=== PATIENT | female | born 1945 | race Caucasian/White ===

== ENCOUNTER 2017-12-18 02:56 | Inpatient (IN) | payer MEDICARE, OTHER ==
[~2017-12-18] VITALS: Ht 167.6 cm; Wt 68.7 kg
[2017-12-18] MEDS ORDERED: BENZ0.5T32 PO (03:26)
[2017-12-18] MEDS ORDERED: QUET50TA8 PO (03:26)
[2017-12-18] MEDS ORDERED: LACT1CAP21 PO (03:26)
[2017-12-18] MEDS ORDERED: LISI-334 PO (03:26)
[2017-12-18] MEDS ORDERED: CARB1TAB47 PO (03:26)
[2017-12-18] MEDS ORDERED: OLAN5TAB5 PO (03:26)
[2017-12-18 05:53] VITALS: BP 166/76
[2017-12-18] MEDS ORDERED: MAGNESIUM HYDROXIDE 2,400 MG/30 ML ORAL.SUSP. PO PRN (06:15)
[2017-12-18] MEDS ORDERED: METHYL SALICYLATE/MENTHOL TOPICAL OINTMENT 29GM TUBE. TP PRN (06:15)
[2017-12-18 07:43] LABS: BASO # 0.1 x10^3/uL (0.0-0.2); BASO % 1 % (0-3); EOS # 0.2 x10^3/uL (0.0-0.7); EOS % 3 % (0-3); HEMATOCRIT 40.1 % (36.0-47.0); HEMOGLOBIN 13.7 g/dL (12.0-15.5); LYMPH # 1.6 x10^3/uL (1.0-4.8); LYMPH % 28 % (24-48); MEAN CORPUSCULAR HEMOGLOBIN 31 pg (25-35); MEAN CORPUSCULAR HGB CONC 34 g/dL (31-37); MEAN CORPUSCULAR VOLUME 90 fL (79-100); MONO # 0.5 x10^3/uL (0.0-1.1); MONO % 10 % (0-9); NEUT # 3.3 x10^3uL (1.8-7.7); NEUT % 59 % (31-73); PLATELET COUNT 306 x10^3/uL (140-400); RED BLOOD COUNT 4.47 x10^6/uL (3.50-5.40); RED CELL DISTRIBUTION WIDTH 15.2 % (11.5-14.5); WHITE BLOOD COUNT 5.7 x10^3/uL (4.0-11.0)
[2017-12-18] MEDS: LACTOBACILLUS RHAMNOSUS GG 1 CAPSULE. PO SCH ×2 (08:19→20:16)
[2017-12-18] MEDS: BENZTROPINE MESYLATE 0.5 MG TABLET PO SCH ×2 (08:19→20:16)
[2017-12-18] MEDS: LISINOPRIL 20 MG TABLET PO SCH (08:20)
[2017-12-18 08:22] LABS: ALBUMIN/GLOBULIN RATIO 1.1 (1.0-1.7); CALCIUM 9.2 mg/dL (8.5-10.1); CREATININE 0.7 mg/dL (0.6-1.0); GFR 82.5; TOTAL BILIRUBIN 0.5 mg/dL (0.2-1.0); TOTAL PROTEIN 7.5 g/dL (6.4-8.2)
--- NOTE | 2017-12-18 09:42 | EKG ---
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
[2017-12-18 11:18] LABS: THYROID STIM HORMONE (TSH) 5.744 uIU/mL (0.358-3.740)
[2017-12-18] MEDS: CARBIDOPA/LEVODOPA 25/100MG TABLET PO SCH ×2 (12:00→17:35)
[2017-12-18 14:07] LABS: THYROXINE 6.3 ug/dL (4.5-12.0)
[2017-12-18 15:57] VITALS: BP 124/68
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
[2017-12-18] MEDS: QUEtiapine 25 MG TABLET. PO SCH (20:16)
--- NOTE | 2017-12-18 22:23 | PDOC ---
Exam Note: Tre Note: Please also refer to the separate dictated note~for this date of service dictated separately.~Patient seen individually. Discussed the patient with Nursing staff reviewed the chart.~Reviewed interim history and current functioning. Reviewed vital signs,~Labs/ Radiology~and current medications noted below. Continue current treatment with the changes noted in the dictated addendum note Assessment: Vital Signs: Vital Signs Date Time Temp Pulse Resp B/P (MAP) Pulse Ox O2 Delivery O2 Flow Rate FiO2 12/18/17 15:57 97.3 66 22 124/68 (86) 100 Labs: Laboratory Tests Test 12/18/17 07:08 White Blood Count 5.7 x10^3/uL (4.0-11.0) Red Blood Count 4.47 x10^6/uL (3.50-5.40) Hemoglobin 13.7 g/dL (12.0-15.5) Hematocrit 40.1 % (36.0-47.0) Mean Corpuscular Volume 90 fL (79-100) Mean Corpuscular Hemoglobin 31 pg (25-35) Mean Corpuscular Hemoglobin Concent 34 g/dL (31-37) Red Cell Distribution Width 15.2 % (11.5-14.5) H Platelet Count 306 x10^3/uL (140-400) Neutrophils (%) (Auto) 59 % (31-73) Lymphocytes (%) (Auto) 28 % (24-48) Monocytes (%) (Auto) 10 % (0-9) H Eosinophils (%) (Auto) 3 % (0-3) Basophils (%) (Auto) 1 % (0-3) Neutrophils # (Auto) 3.3 x10^3uL (1.8-7.7) Lymphocytes # (Auto) 1.6 x10^3/uL (1.0-4.8) Monocytes # (Auto) 0.5 x10^3/uL (0.0-1.1) Eosinophils # (Auto) 0.2 x10^3/uL (0.0-0.7) Basophils # (Auto) 0.1 x10^3/uL (0.0-0.2) Sodium Level 142 mmol/L (136-145) Potassium Level 4.0 mmol/L (3.5-5.1) Chloride Level 106 mmol/L (98-107) Carbon Dioxide Level 30 mmol/L (21-32) Anion Gap 6 (6-14) Blood Urea Nitrogen 11 mg/dL (7-20) Creatinine 0.7 mg/dL (0.6-1.0) Estimated GFR (Cockcroft-Gault) 82.5 BUN/Creatinine Ratio 16 (6-20) Glucose Level 86 mg/dL (70-99) Hemoglobin A1c 5.0 % (4.8-5.6) Calcium Level 9.2 mg/dL (8.5-10.1) Magnesium Level 2.0 mg/dL (1.8-2.4) Iron Level 82 ug/dL (50-170) Total Iron Binding Capacity 329 ug/dL (250-450) Iron Saturation 25 % (15-34) Total Bilirubin 0.5 mg/dL (0.2-1.0) Aspartate Amino Transferase (AST) 18 U/L (15-37) Alanine Aminotransferase (ALT) 18 U/L (14-59) Alkaline Phosphatase 100 U/L (46-116) Total Protein 7.5 g/dL (6.4-8.2) Albumin 4.0 g/dL (3.4-5.0) Albumin/Globulin Ratio 1.1 (1.0-1.7) Triglycerides Level 66 mg/dL (0-150) Cholesterol Level 173 mg/dL (0-200) LDL Cholesterol, Calculated 93 mg/dL (0-100) VLDL Cholesterol, Calculated 13 mg/dL (0-40) Non-HDL Cholesterol Calculated 106 mg/dL (0-129) HDL Cholesterol 67 mg/dL (40-60) H Cholesterol/HDL Ratio 2.0 Thyroid Stimulating Hormone (TSH) 5.744 uIU/mL (0.358-3.740) Thyroxine (T4) 6.3 ug/dL (4.5-12.0) Total Triiodothyronine (TT3) 108 ng/dL (71-180) Current Medications: Meds: Current Medications Lisinopril (Prinivil) 20 mg DAILY PO Last administered on 12/18/17at 08:20; Start 12/18/17 at 09:00 Olanzapine (ZyPREXA ZYDIS) 2.5 mg PRN Q2HR PRN PO ANXIETY / AGITATION Last administered on 12/18/17at 12:15; Start 12/18/17 at 06:00 Benztropine Mesylate (Cogentin) 0.5 mg BID PO Last administered on 12/18/17at 20 :16; Start 12/18/17 at 09:00 Carbidopa/Levodopa (Sinemet 25/100) 2 tab [id number] PO Last administered on at 17:35; Start 12/18/17 at 12:00 Lactobacillus Rhamnosus (Culturelle) 1 cap BID PO Last administered on at 20:16; Start 12/18/17 at 09:00 Quetiapine Fumarate (SEROquel) 25 mg BID PO Last administered on 12/18/17at 20: 16; Start 12/18/17 at 21:00 Acetaminophen (Tylenol) 650 mg PRN Q6HRS PRN PO PAIN / TEMP; Start 12/18/17 at 06:15 Multi-Ingredient Ointment (Analgesic [place]) 1 constantine PRN QID PRN TP MUSCLE PAIN; Start 12/18/17 at 06:15 Al Hydroxide/Mg Hydroxide (Mylanta Plus Xs) 15 ml PRN AFTMEALHC PRN PO DYSPEPSIA; Start 12/18/17 at 06:15 Magnesium Hydroxide (Milk Of Magnesia) 2,400 mg PRN QHS PRN PO CONSTIPATION; Start 12/18/17 at 06:15 Sertraline HCl (Zoloft) 25 mg DAILY PO ; Start 12/19/17 at 09:00 Trazodone HCl (Desyrel) 50 mg PRN QHS PRN PO insomnia; Start 12/18/17 at 18:30 Active Scripts Active Reported Benztropine Mesylate 0.5 Mg Tablet 0.5 Mg PO BID Zyprexa Zydis (Olanzapine) 5 Mg Tab.rapdis 2.5 Mg PO PRN Q2HR PRN Seroquel Xr (Quetiapine Fumarate) 50 Mg Tab.er.24h 50 Mg PO HS Lisinopril 20 Mg Tablet 20 Mg PO DAILY Culturelle (Lactobacillus Rhamnosus Gg) 1 Each Capsule 1 Each PO BID Carbidopa-Levo 25-100 Mg Odt (Carbidopa/Levodopa) 1 Each Tab.rapdis 2 Each PO QID I have reviewed the current psychotropics carefully including drug interactions. Risk benefit ratio favors no change other than as noted in my dictated progress note. Diagnosis: Problems: (1) Anxiety disorder (2) Impulse control disorder (3) Major depressive disorder, recurrent episode (4) Psychosis, atypical (5) Mild cognitive impairment SUDHEER SAPP MD Dec 18, 2017 22:23
[2017-12-19] MEDS: CARBIDOPA/LEVODOPA 25/100MG TABLET PO SCH ×4 (00:05→17:42)
[2017-12-19 06:00] VITALS: BP 138/69
[2017-12-19 08:02] LABS: BILIRUBIN,URINE NEG (NEG); CLARITY,URINE CLEAR; COLOR,URINE YELLOW; GLUCOSE,URINE NEG (NEG)
[2017-12-19 08:03] LABS: BACTERIA,URINE 0 /HPF (0-FEW); NITRITE,URINE NEG (NEG); SQUAMOUS EPITHELIAL CELL,UR FEW /LPF; UROBILINOGEN,URINE 0.2 mg/dL (0.2 mg/dL)
[2017-12-19] MEDS: BENZTROPINE MESYLATE 0.5 MG TABLET PO SCH ×2 (08:29→20:02)
[2017-12-19] MEDS: LISINOPRIL 20 MG TABLET PO SCH (08:30)
[2017-12-19] MEDS: LACTOBACILLUS RHAMNOSUS GG 1 CAPSULE. PO SCH ×2 (08:30→20:02)
[2017-12-19] MEDS: QUEtiapine 25 MG TABLET. PO SCH ×2 (08:30→20:02)
[2017-12-19] MEDS: SERTRALINE 25 MG TABLET. PO SCH (09:32)
[2017-12-19] MEDS: MAG HYDROX/AL HYDROX/SIMETH 30 ML ORAL.SUSP PO PRN ×2 (11:34→20:06)
--- NOTE | 2017-12-19 15:26 | CONS ---
DATE OF CONSULTATION: 12/19/2017 NEUROLOGY CONSULTATION REFERRING PHYSICIAN: Dr. Gutierrez. REASON FOR CONSULTATION: Parkinson disease. HISTORY OF PRESENT ILLNESS: This is a 72-year-old female, right-handed, who was transferred from assisted living facility in [place] to the Senior [facility] Unit with diagnoses of severe depression and suicidal ideation with a plan of overdosing her medications. It was reported that the patient had some behavior disturbances including agitation and angry and asking another resident for a kiss. Neuro consult was requested because the patient has had a longstanding history of Parkinson disease. According to the patient, she was diagnosed with Parkinson disease in 1998. Currently, she complains of intermittent tremor and stiffness. She denies any falls or injuries. She also complains of epigastric discomfort described as heartburn. On occasion, she complains of hallucinations. She denies chest pain, shortness of breath, palpitation, dysarthria, dysphagia, or paresthesia. PAST MEDICAL HISTORY: Significant for hypertension, Parkinson disease, hypothyroidism, generalized weakness, depression, and suicidal ideations. SOCIAL HISTORY: The patient is an assisted living facility resident. She denies smoking, alcohol drinking, or illicit drug use. FAMILY HISTORY: Noncontributory. CURRENT HOME MEDICATIONS: Zoloft 25 mg daily, Seroquel 25 mg twice daily, trazodone 50 mg at bedtime p.r.n. for insomnia, carbidopa/levodopa 25/100 two tablets q.i.d., benztropine 0.5 mg twice daily, lisinopril 20 mg daily, olanzapine 2.5 mg q.2 hours p.r.n. for agitation, Tylenol p.r.n. for pain. ALLERGIES: No known drug allergies. REVIEW OF SYSTEMS: A 10-point review of system was performed and as mentioned above in the history of present illness, otherwise unremarkable. PHYSICAL EXAMINATION: GENERAL: Well-developed, well-nourished white female not in acute distress. VITAL SIGNS: Blood pressure 138/69, respiratory rate 20, pulse is 66, temperature 97.5, oxygen saturation is 97% on room air. HEENT: Normocephalic, atraumatic, otherwise unremarkable. NECK: Supple. Negative for carotid bruit, lymphadenopathy, or thyromegaly. LUNGS: Clear to A and P. CARDIOVASCULAR: Regular rhythm, normal S1-S2. There is no S3, S4 or murmur. ABDOMEN: Soft, bowel sounds positive. EXTREMITIES: Negative for cyanosis, clubbing, or pedal edema. NEUROLOGIC: 1. Mental Status: The patient is alert and oriented x 3. Speech is fluent. There is no language dysfunction. The patient recalls 2/3 immediately and after 1 and 3 minutes. Judgment and abstract thinking are fair. The patient denies hallucination or delusion at this time. 2. Cranial Nerves: Visual flores are full. The pupils are reactive to light and accommodation. The extraocular movements are intact. There is no nystagmus. There is no facial motor or sensory deficit. Hearing is intact bilaterally. The palate is elevated symmetrically. Sternocleidomastoid muscles are powerful bilaterally. The patient shrugs her shoulder symmetrically and protrudes her tongue in the midline without fasciculation or atrophy. 3. Motor Examination: No focal muscle bulk was seen. The tone is normal. The strength is 5/5 throughout. 4. Sensory Examination: Reveals normal pinprick, light touch, vibratory and position senses. 5. Deep tendon reflexes are symmetric and active without pathologic responses. 6. Gait and coordination are normal. However, the patient uses a walker for amputation as well. LABORATORY DATA: CBC revealed white blood cells of 5.7000, hemoglobin 13.7, hematocrit 40.1, platelet count 306,000. Chemistry revealed sodium of 142, potassium 4, chloride 106, CO2 30, BUN 11, creatinine 0.7, glucose 86, A1c is 5, calcium 9.2. Iron is normal at 82. Liver enzymes are normal. Lipid profile is normal. TSH is high at 5.7 with normal free T4 and T3. Urinalysis, negative for urinary tract infection with a trace urinary leukocyte esterase. IMPRESSION: 1. Parkinson disease. 2. Major depression with psychotic feature and suicidal ideation. 3. Anxiety. RECOMMENDATIONS: 1. Continue with current home medications for Parkinson disease including carbidopa/levodopa and benztropine. 2. Continue with current medical and psychiatric care initiated by Dr. Hughes and Dr. Gutierrez. M Clarence HINOJOSA MD DR: JOSHUA/robby JOB#: [id number] / [id number]
[2017-12-19 16:16] VITALS: BP 129/62
[2017-12-19] MEDS: traZODone 50 MG TABLET. PO PRN (20:24)
--- NOTE | 2017-12-19 20:55 | PDOC ---
Exam Note: Tre Note: Please also refer to the separate dictated note~for this date of service dictated separately.~Patient seen individually. Discussed the patient with Nursing staff reviewed the chart.~Reviewed interim history and current functioning. Reviewed vital signs,~Labs/ Radiology~and current medications noted below. Continue current treatment with the changes noted in the dictated addendum note Assessment: Vital Signs: Vital Signs Date Time Temp Pulse Resp B/P (MAP) Pulse Ox O2 Delivery O2 Flow Rate FiO2 12/19/17 16:16 97.6 67 18 129/62 (84) 100 12/19/17 06:00 Room Air I&O Intake and Output 12/19/17 07:00 Intake Total 720 ml Balance 720 ml Intake Oral 720 ml Labs: Laboratory Tests Test 12/19/17 07:40 Urine Collection Type Unknown Urine Color Yellow Urine Clarity Clear Urine pH 7.0 Urine Specific [place] 1.015 Urine Protein Neg (NEG-TRACE) Urine Glucose (UA) Neg mg/dL (NEG) Urine Ketones (Stick) Neg mg/dL (NEG) Urine Blood Neg (NEG) Urine Nitrite Neg (NEG) Urine Bilirubin Neg (NEG) Urine Urobilinogen Dipstick 0.2 mg/dL (0.2 mg/dL) Urine Leukocyte Esterase Trace (NEG) Urine RBC 1-2 /HPF (0-2) Urine WBC 1-4 /HPF (0-4) Urine Squamous Epithelial Cells Few /LPF Urine Bacteria 0 /HPF (0-FEW) Current Medications: Meds: Current Medications Lisinopril (Prinivil) 20 mg DAILY PO Last administered on 12/19/17at 08:30; Start 12/18/17 at 09:00 Olanzapine (ZyPREXA ZYDIS) 2.5 mg PRN Q2HR PRN PO ANXIETY / AGITATION Last administered on 12/18/17at 12:15; Start 12/18/17 at 06:00 Benztropine Mesylate (Cogentin) 0.5 mg BID PO Last administered on 12/19/17at 20: 02; Start 12/18/17 at 09:00 Carbidopa/Levodopa (Sinemet 25/100) 2 tab [id number] PO Last administered on 12/19at 17:42; Start 12/18/17 at 12:00 Lactobacillus Rhamnosus (Culturelle) 1 cap BID PO Last administered on at 20:02; Start 12/18/17 at 09:00 Quetiapine Fumarate (SEROquel) 25 mg BID PO Last administered on 12/19/17at 20:02 ; Start 12/18/17 at 21:00 Acetaminophen (Tylenol) 650 mg PRN Q6HRS PRN PO PAIN / TEMP; Start 12/18/17 at 06:15 Multi-Ingredient Ointment (Analgesic [place]) 1 constantine PRN QID PRN TP MUSCLE PAIN; Start 12/18/17 at 06:15 Al Hydroxide/Mg Hydroxide (Mylanta Plus Xs) 15 ml PRN AFTMEALHC PRN PO DYSPEPSIA Last administered on 12/19/17 20:06; Start 12/18/17 at 06:15 Magnesium Hydroxide (Milk Of Magnesia) 2,400 mg PRN QHS PRN PO CONSTIPATION; Start 12/18/17 at 06:15 Sertraline HCl (Zoloft) 25 mg DAILY PO Last administered on 12/19/17at 09:32; Start 12/19/17 at 09:00 Trazodone HCl (Desyrel) 50 mg PRN QHS PRN PO insomnia Last administered on at 20:24; Start 12/18/17 at 18:30 Active Scripts Active Reported Benztropine Mesylate 0.5 Mg Tablet 0.5 Mg PO BID Zyprexa Zydis (Olanzapine) 5 Mg Tab.rapdis 2.5 Mg PO PRN Q2HR PRN Seroquel Xr (Quetiapine Fumarate) 50 Mg Tab.er.24h 50 Mg PO HS Lisinopril 20 Mg Tablet 20 Mg PO DAILY Culturelle (Lactobacillus Rhamnosus Gg) 1 Each Capsule 1 Each PO BID Carbidopa-Levo 25-100 Mg Odt (Carbidopa/Levodopa) 1 Each Tab.rapdis 2 Each PO QID I have reviewed the current psychotropics carefully including drug interactions. Risk benefit ratio favors no change other than as noted in my dictated progress note. Diagnosis: Problems: (1) Anxiety disorder (2) Impulse control disorder (3) Major depressive disorder, recurrent episode (4) Psychosis, atypical (5) Mild cognitive impairment SUDHEER SAPP MD Dec 19, 2017 20:55
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
[2017-12-20] MEDS: CARBIDOPA/LEVODOPA 25/100MG TABLET PO SCH ×4 (05:23→17:10)
[2017-12-20 06:16] VITALS: BP 143/56
[2017-12-20] MEDS: BENZTROPINE MESYLATE 0.5 MG TABLET PO SCH ×2 (08:05→19:35)
[2017-12-20] MEDS: LISINOPRIL 20 MG TABLET PO SCH (08:05)
[2017-12-20] MEDS: SERTRALINE 25 MG TABLET. PO SCH (08:05)
[2017-12-20] MEDS: QUEtiapine 25 MG TABLET. PO SCH ×2 (08:05→19:35)
[2017-12-20] MEDS: LACTOBACILLUS RHAMNOSUS GG 1 CAPSULE. PO SCH ×2 (08:05→19:35)
[2017-12-20] MEDS: ACETAMINOPHEN 325 MG TABLET PO PRN ×2 (12:02→17:27)
[2017-12-20 15:58] VITALS: BP 123/52
[2017-12-20] MEDS: MAG HYDROX/AL HYDROX/SIMETH 30 ML ORAL.SUSP PO PRN (17:58)
[2017-12-20] MEDS: traZODone 50 MG TABLET. PO PRN (19:36)
--- NOTE | 2017-12-20 20:57 | PDOC ---
Exam Note: Tre Note: Please also refer to the separate dictated note~for this date of service dictated separately.~Patient seen individually. Discussed the patient with Nursing staff reviewed the chart.~Reviewed interim history and current functioning. Reviewed vital signs,~Labs/ Radiology~and current medications noted below. Continue current treatment with the changes noted in the dictated addendum note Assessment: Vital Signs: Vital Signs Date Time Temp Pulse Resp B/P (MAP) Pulse Ox O2 Delivery O2 Flow Rate FiO2 12/20/17 15:58 98.4 75 16 123/52 (75) 96 12/19/17 06:00 Room Air I&O Intake and Output 12/20/17 06:59 Intake Total 1680 ml Balance 1680 ml Intake Oral 1680 ml # Voids 2 Current Medications: Meds: Current Medications Lisinopril (Prinivil) 20 mg DAILY PO Last administered on 12/20/17at 08:05; Start 12/18/17 at 09:00 Olanzapine (ZyPREXA ZYDIS) 2.5 mg PRN Q2HR PRN PO ANXIETY / AGITATION Last administered on 12/18/17at 12:15; Start 12/18/17 at 06:00 Benztropine Mesylate (Cogentin) 0.5 mg BID PO Last administered on 12/20/17 19: 35; Start 12/18/17 at 09:00 Carbidopa/Levodopa (Sinemet 25/100) 2 tab [id number] PO Last administered on 12/20at 17:10; Start 12/18/17 at 12:00 Lactobacillus Rhamnosus (Culturelle) 1 cap BID PO Last administered on at 19:35; Start 12/18/17 at 09:00 Quetiapine Fumarate (SEROquel) 25 mg BID PO Last administered on 12/20/17at 08:05 ; Start 12/18/17 at 21:00; Stop 12/20/17 at 18:27; Status DC Acetaminophen (Tylenol) 650 mg PRN Q6HRS PRN PO PAIN / TEMP Last administered on 12/20/17at 17:27; Start 12/18/17 at 06:15 Multi-Ingredient Ointment (Analgesic [place]) 1 constantine PRN QID PRN TP MUSCLE PAIN; Start 12/18/17 at 06:15 Al Hydroxide/Mg Hydroxide (Mylanta Plus Xs) 15 ml PRN AFTMEALHC PRN PO DYSPEPSIA Last administered on 12/20/17at 17:58; Start 12/18/17 at 06:15 Magnesium Hydroxide (Milk Of Magnesia) 2,400 mg PRN QHS PRN PO CONSTIPATION; Start 12/18/17 at 06:15 Sertraline HCl (Zoloft) 25 mg DAILY PO Last administered on 12/20/17at 08:05; Start 12/19/17 at 09:00; Stop 12/20/17 at 17:02; Status DC Trazodone HCl (Desyrel) 50 mg PRN QHS PRN PO insomnia Last administered on at 19:36; Start 12/18/17 at 18:30 Duloxetine HCl (Cymbalta) 30 mg DAILY PO ; Start 12/21/17 at 09:00 Quetiapine Fumarate (SEROquel) 25 mg TID PO Last administered on 12/20/17at 19:35 ; Start 12/20/17 at 21:00 Active Scripts Active Reported Benztropine Mesylate 0.5 Mg Tablet 0.5 Mg PO BID Zyprexa Zydis (Olanzapine) 5 Mg Tab.rapdis 2.5 Mg PO PRN Q2HR PRN Seroquel Xr (Quetiapine Fumarate) 50 Mg Tab.er.24h 50 Mg PO HS Lisinopril 20 Mg Tablet 20 Mg PO DAILY Culturelle (Lactobacillus Rhamnosus Gg) 1 Each Capsule 1 Each PO BID Carbidopa-Levo 25-100 Mg Odt (Carbidopa/Levodopa) 1 Each Tab.rapdis 2 Each PO QID I have reviewed the current psychotropics carefully including drug interactions. Risk benefit ratio favors no change other than as noted in my dictated progress note. Diagnosis: Problems: (1) Anxiety disorder (2) Impulse control disorder (3) Major depressive disorder, recurrent episode (4) Psychosis, atypical (5) Mild cognitive impairment SUDHEER SAPP MD Dec 20, 2017 20:57
[2017-12-21] MEDS: CARBIDOPA/LEVODOPA 25/100MG TABLET PO SCH ×5 (06:20→23:56)
[2017-12-21 06:32] VITALS: BP 167/79
[2017-12-21] MEDS: LACTOBACILLUS RHAMNOSUS GG 1 CAPSULE. PO SCH ×2 (08:32→20:02)
[2017-12-21] MEDS: BENZTROPINE MESYLATE 0.5 MG TABLET PO SCH ×2 (08:33→20:02)
[2017-12-21] MEDS: LISINOPRIL 20 MG TABLET PO SCH (08:33)
[2017-12-21] MEDS: QUEtiapine 25 MG TABLET. PO SCH ×3 (08:33→20:03)
[2017-12-21] MEDS: DULoxetine HCL 30 MG CAPSULE.DR PO SCH (08:36)
[2017-12-21] MEDS: MAG HYDROX/AL HYDROX/SIMETH 30 ML ORAL.SUSP PO PRN ×2 (08:59→15:27)
[2017-12-21 16:22] VITALS: BP 124/67
--- NOTE | 2017-12-21 20:38 | PDOC ---
Exam Note: Tre Note: Please also refer to the separate dictated note~for this date of service dictated separately.~Patient seen individually. Discussed the patient with Nursing staff reviewed the chart.~Reviewed interim history and current functioning. Reviewed vital signs,~Labs/ Radiology~and current medications noted below. Continue current treatment with the changes noted in the dictated addendum note Assessment: Vital Signs: Vital Signs Date Time Temp Pulse Resp B/P (MAP) Pulse Ox O2 Delivery O2 Flow Rate FiO2 12/21/17 16:22 97.8 70 18 124/67 (86) 98 12/19/17 06:00 Room Air I&O Intake and Output 12/21/17 06:59 Intake Total 1260 ml Balance 1260 ml Intake Oral 1260 ml # Voids 2 Current Medications: Meds: Current Medications Lisinopril (Prinivil) 20 mg DAILY PO Last administered on 12/21/17at 08:33; Start 12/18/17 at 09:00 Olanzapine (ZyPREXA ZYDIS) 2.5 mg PRN Q2HR PRN PO ANXIETY / AGITATION Last administered on 12/18/17at 12:15; Start 12/18/17 at 06:00 Benztropine Mesylate (Cogentin) 0.5 mg BID PO Last administered on 12/21/17 20: 02; Start 12/18/17 at 09:00 Carbidopa/Levodopa (Sinemet 25/100) 2 tab [id number] PO Last administered on 12/21at 17:54; Start 12/18/17 at 12:00 Lactobacillus Rhamnosus (Culturelle) 1 cap BID PO Last administered on at 20:02; Start 12/18/17 at 09:00 Quetiapine Fumarate (SEROquel) 25 mg BID PO Last administered on 12/20/17at 08:05 ; Start 12/18/17 at 21:00; Stop 12/20/17 at 18:27; Status DC Acetaminophen (Tylenol) 650 mg PRN Q6HRS PRN PO PAIN / TEMP Last administered on 12/20/17at 17:27; Start 12/18/17 at 06:15 Multi-Ingredient Ointment (Analgesic [place]) 1 constantine PRN QID PRN TP MUSCLE PAIN; Start 12/18/17 at 06:15 Al Hydroxide/Mg Hydroxide (Mylanta Plus Xs) 15 ml PRN AFTMEALHC PRN PO DYSPEPSIA Last administered on 12/21/17at 15:27; Start 12/18/17 at 06:15 Magnesium Hydroxide (Milk Of Magnesia) 2,400 mg PRN QHS PRN PO CONSTIPATION; Start 12/18/17 at 06:15 Sertraline HCl (Zoloft) 25 mg DAILY PO Last administered on 12/20/17at 08:05; Start 12/19/17 at 09:00; Stop 12/20/17 at 17:02; Status DC Trazodone HCl (Desyrel) 50 mg PRN QHS PRN PO insomnia Last administered on at 19:36; Start 12/18/17 at 18:30 Duloxetine HCl (Cymbalta) 30 mg DAILY PO Last administered on 12/21/17at 08:36; Start 12/21/17 at 09:00 Quetiapine Fumarate (SEROquel) 25 mg TID PO Last administered on 12/21/17at 20:03 ; Start 12/20/17 at 21:00 Loperamide HCl (Imodium) 4 mg PRN DAILY PRN PO diarrhea; Start 12/21/17 at 15:45 Loperamide HCl (Imodium) 2 mg PRN Q15MIN PRN PO DIARRHEA; Start 12/21/17 at 15: 45 Active Scripts Active Reported Benztropine Mesylate 0.5 Mg Tablet 0.5 Mg PO BID Zyprexa Zydis (Olanzapine) 5 Mg Tab.rapdis 2.5 Mg PO PRN Q2HR PRN Seroquel Xr (Quetiapine Fumarate) 50 Mg Tab.er.24h 50 Mg PO HS Lisinopril 20 Mg Tablet 20 Mg PO DAILY Culturelle (Lactobacillus Rhamnosus Gg) 1 Each Capsule 1 Each PO BID Carbidopa-Levo 25-100 Mg Odt (Carbidopa/Levodopa) 1 Each Tab.rapdis 2 Each PO QID I have reviewed the current psychotropics carefully including drug interactions. Risk benefit ratio favors no change other than as noted in my dictated progress note. Diagnosis: Problems: (1) Anxiety disorder (2) Impulse control disorder (3) Major depressive disorder, recurrent episode (4) Psychosis, atypical (5) Mild cognitive impairment SUDHEER SAPP MD Dec 21, 2017 20:38
--- NOTE | 2017-12-21 21:31 | PN ---
DATE: 12/20/2017 This is a late entry for date of service 12/20/2017 and covers the elements not covered in my initial note. SUBJECTIVE: I met with the patient in the evening on 4 separate occasions as she kept following me around the unit, had further questions. The patient slept 6-1/2 hours previous evening. She gets somewhat confused in the evening times, somewhat psychotic and was found having climbed into the bed of another patient at night. She says she does not remember this. REVIEW OF SYSTEMS: Ambulation impaired with walker. No CV, , pulmonary, eye, ENT system symptoms on review. MENTAL STATUS EXAM: Oriented to herself and situation. Speech coherent with some pressure, abstraction fair, computation impaired, language function intact, attention span short. Mood and affect remains somewhat anxious, labile. LABORATORY DATA: Reviewed. IMPRESSION: Unchanged from initial note. PLAN: Increase Seroquel to 25 mg 9 a.m., 1:00 p.m., 5:00 p.m. Continue rest unchanged. TSH is 5.7, defer to Dr. Hughes. MAN Victor Hugo SAPP MD DR: MAYLIN/robby JOB#: [id number] / [id number]
[2017-12-22] MEDS: CARBIDOPA/LEVODOPA 25/100MG TABLET PO SCH ×4 (05:54→20:21)
[2017-12-22 06:13] VITALS: BP 126/73
[2017-12-22] MEDS: LACTOBACILLUS RHAMNOSUS GG 1 CAPSULE. PO SCH ×2 (09:17→20:21)
[2017-12-22] MEDS: DULoxetine HCL 30 MG CAPSULE.DR PO SCH (09:17)
[2017-12-22] MEDS: BENZTROPINE MESYLATE 0.5 MG TABLET PO SCH ×2 (09:17→20:21)
[2017-12-22] MEDS: QUEtiapine 25 MG TABLET. PO SCH ×3 (09:17→20:22)
[2017-12-22] MEDS: LISINOPRIL 20 MG TABLET PO SCH (09:17)
[2017-12-22] MEDS: LOPERAMIDE 2 MG CAPSULE PO PRN ×3 (10:14→17:59)
[2017-12-22 16:13] VITALS: BP 131/54
--- NOTE | 2017-12-22 20:33 | PDOC ---
Exam Note: Tre Note: Please also refer to the separate dictated note~for this date of service dictated separately.~Patient seen individually. Discussed the patient with Nursing staff reviewed the chart.~Reviewed interim history and current functioning. Reviewed vital signs,~Labs/ Radiology~and current medications noted below. Continue current treatment with the changes noted in the dictated addendum note Assessment: Vital Signs: Vital Signs Date Time Temp Pulse Resp B/P (MAP) Pulse Ox O2 Delivery O2 Flow Rate FiO2 12/22/17 16:13 98.0 69 16 131/54 (79) 83 12/19/17 06:00 Room Air I&O Intake and Output 12/22/17 07:00 Intake Total 1560 ml Balance 1560 ml Intake Oral 1560 ml Current Medications: Meds: Current Medications Lisinopril (Prinivil) 20 mg DAILY PO Last administered on 12/22/17 09:17; Start 12/18/17 at 09:00 Olanzapine (ZyPREXA ZYDIS) 2.5 mg PRN Q2HR PRN PO ANXIETY / AGITATION Last administered on 12/18/17at 12:15; Start 12/18/17 at 06:00 Benztropine Mesylate (Cogentin) 0.5 mg BID PO Last administered on 12/22/17 20: 21; Start 12/18/17 at 09:00 Carbidopa/Levodopa (Sinemet 25/100) 2 tab [id number] PO Last administered on 12/22at 17:38; Start 12/18/17 at 12:00 Lactobacillus Rhamnosus (Culturelle) 1 cap BID PO Last administered on 20:21; Start 12/18/17 at 09:00 Quetiapine Fumarate (SEROquel) 25 mg BID PO Last administered on 12/20/17at 08:05 ; Start 12/18/17 at 21:00; Stop 12/20/17 at 18:27; Status DC Acetaminophen (Tylenol) 650 mg PRN Q6HRS PRN PO PAIN / TEMP Last administered on 12/20/17at 17:27; Start 12/18/17 at 06:15 Multi-Ingredient Ointment (Analgesic [place]) 1 constantine PRN QID PRN TP MUSCLE PAIN; Start 12/18/17 at 06:15 Al Hydroxide/Mg Hydroxide (Mylanta Plus Xs) 15 ml PRN AFTMEALHC PRN PO DYSPEPSIA Last administered on 12/21/17at 15:27; Start 12/18/17 at 06:15 Magnesium Hydroxide (Milk Of Magnesia) 2,400 mg PRN QHS PRN PO CONSTIPATION; Start 12/18/17 at 06:15 Sertraline HCl (Zoloft) 25 mg DAILY PO Last administered on 12/20/17at 08:05; Start 12/19/17 at 09:00; Stop 12/20/17 at 17:02; Status DC Trazodone HCl (Desyrel) 50 mg PRN QHS PRN PO insomnia Last administered on at 19:36; Start 12/18/17 at 18:30 Duloxetine HCl (Cymbalta) 30 mg DAILY PO Last administered on 12/22/17at 09:17; Start 12/21/17 at 09:00 Quetiapine Fumarate (SEROquel) 25 mg TID PO Last administered on 12/22/17at 20:22 ; Start 12/20/17 at 21:00 Loperamide HCl (Imodium) 4 mg PRN DAILY PRN PO diarrhea Last administered on 12/22/17at 10:14; Start 12/21/17 at 15:45 Loperamide HCl (Imodium) 2 mg PRN Q15MIN PRN PO DIARRHEA Last administered on at 17:59; Start 12/21/17 at 15:45 Active Scripts Active Reported Benztropine Mesylate 0.5 Mg Tablet 0.5 Mg PO BID Zyprexa Zydis (Olanzapine) 5 Mg Tab.rapdis 2.5 Mg PO PRN Q2HR PRN Seroquel Xr (Quetiapine Fumarate) 50 Mg Tab.er.24h 50 Mg PO HS Lisinopril 20 Mg Tablet 20 Mg PO DAILY Culturelle (Lactobacillus Rhamnosus Gg) 1 Each Capsule 1 Each PO BID Carbidopa-Levo 25-100 Mg Odt (Carbidopa/Levodopa) 1 Each Tab.rapdis 2 Each PO QID I have reviewed the current psychotropics carefully including drug interactions. Risk benefit ratio favors no change other than as noted in my dictated progress note. Diagnosis: Problems: (1) Anxiety disorder (2) Impulse control disorder (3) Major depressive disorder, recurrent episode (4) Psychosis, atypical (5) Mild cognitive impairment SUDHEER SAPP MD Dec 22, 2017 20:33
[2017-12-23] MEDS: CARBIDOPA/LEVODOPA 25/100MG TABLET PO SCH ×5 (00:22→20:28)
[2017-12-23 05:45] VITALS: BP 121/57
[2017-12-23] MEDS: BENZTROPINE MESYLATE 0.5 MG TABLET PO SCH ×2 (08:43→20:29)
[2017-12-23] MEDS: DULoxetine HCL 30 MG CAPSULE.DR PO SCH (08:44)
[2017-12-23] MEDS: LISINOPRIL 20 MG TABLET PO SCH (08:44)
[2017-12-23] MEDS: QUEtiapine 25 MG TABLET. PO SCH ×3 (08:44→20:29)
[2017-12-23] MEDS: LACTOBACILLUS RHAMNOSUS GG 1 CAPSULE. PO SCH ×2 (08:44→20:28)
[2017-12-23] MEDS: LOPERAMIDE 2 MG CAPSULE PO PRN ×2 (14:30→16:47)
[2017-12-23] MEDS: ACETAMINOPHEN 325 MG TABLET PO PRN (14:30)
[2017-12-23 15:59] VITALS: BP 145/73
--- NOTE | 2017-12-23 20:54 | PDOC ---
Exam Note: Tre Note: Please also refer to the separate dictated note~for this date of service dictated separately.~Patient seen individually. Discussed the patient with Nursing staff reviewed the chart.~Reviewed interim history and current functioning. Reviewed vital signs,~Labs/ Radiology~and current medications noted below. Continue current treatment with the changes noted in the dictated addendum note Assessment: Vital Signs: Vital Signs Date Time Temp Pulse Resp B/P (MAP) Pulse Ox O2 Delivery O2 Flow Rate FiO2 12/23/17 15:59 97.8 68 18 145/73 (97) 100 12/19/17 06:00 Room Air I&O Intake and Output 12/23/17 06:59 Intake Total 830 ml Balance 830 ml Intake Oral 830 ml # Bowel Movements 2 Current Medications: Meds: Current Medications Lisinopril (Prinivil) 20 mg DAILY PO Last administered on 12/23/17at 08:44; Start 12/18/17 at 09:00 Olanzapine (ZyPREXA ZYDIS) 2.5 mg PRN Q2HR PRN PO ANXIETY / AGITATION Last administered on 12/18/17at 12:15; Start 12/18/17 at 06:00 Benztropine Mesylate (Cogentin) 0.5 mg BID PO Last administered on 12/23/17 20: 29; Start 12/18/17 at 09:00 Carbidopa/Levodopa (Sinemet 25/100) 2 tab [id number] PO Last administered on 12/23at 20:28; Start 12/18/17 at 12:00 Lactobacillus Rhamnosus (Culturelle) 1 cap BID PO Last administered on at 20:28; Start 12/18/17 at 09:00 Quetiapine Fumarate (SEROquel) 25 mg BID PO Last administered on 12/20/17at 08:05 ; Start 12/18/17 at 21:00; Stop 12/20/17 at 18:27; Status DC Acetaminophen (Tylenol) 650 mg PRN Q6HRS PRN PO PAIN / TEMP Last administered on 12/23/17at 14:30; Start 12/18/17 at 06:15 Multi-Ingredient Ointment (Analgesic [place]) 1 constantine PRN QID PRN TP MUSCLE PAIN; Start 12/18/17 at 06:15 Al Hydroxide/Mg Hydroxide (Mylanta Plus Xs) 15 ml PRN AFTMEALHC PRN PO DYSPEPSIA Last administered on 12/21/17at 15:27; Start 12/18/17 at 06:15 Magnesium Hydroxide (Milk Of Magnesia) 2,400 mg PRN QHS PRN PO CONSTIPATION; Start 12/18/17 at 06:15 Sertraline HCl (Zoloft) 25 mg DAILY PO Last administered on 12/20/17at 08:05; Start 12/19/17 at 09:00; Stop 12/20/17 at 17:02; Status DC Trazodone HCl (Desyrel) 50 mg PRN QHS PRN PO insomnia Last administered on at 19:36; Start 12/18/17 at 18:30 Duloxetine HCl (Cymbalta) 30 mg DAILY PO Last administered on 12/23/17at 08:44; Start 12/21/17 at 09:00; Stop 12/23/17 at 12:17; Status DC Quetiapine Fumarate (SEROquel) 25 mg TID PO Last administered on 12/23/17at 20:29 ; Start 12/20/17 at 21:00 Loperamide HCl (Imodium) 4 mg PRN DAILY PRN PO diarrhea Last administered on 12/22/17at 10:14; Start 12/21/17 at 15:45 Loperamide HCl (Imodium) 2 mg PRN Q15MIN PRN PO DIARRHEA Last administered on at 16:47; Start 12/21/17 at 15:45 Fluvoxamine Maleate (Luvox) 25 mg HS PO Last administered on 12/23/17at 20:30; Start 12/23/17 at 21:00; Stop 12/26/17 at 09:00 Fluvoxamine Maleate (Luvox) 50 mg HS PO ; Start 12/26/17 at 21:00 Active Scripts Active Reported Benztropine Mesylate 0.5 Mg Tablet 0.5 Mg PO BID Zyprexa Zydis (Olanzapine) 5 Mg Tab.rapdis 2.5 Mg PO PRN Q2HR PRN Seroquel Xr (Quetiapine Fumarate) 50 Mg Tab.er.24h 50 Mg PO HS Lisinopril 20 Mg Tablet 20 Mg PO DAILY Culturelle (Lactobacillus Rhamnosus Gg) 1 Each Capsule 1 Each PO BID Carbidopa-Levo 25-100 Mg Odt (Carbidopa/Levodopa) 1 Each Tab.rapdis 2 Each PO QID I have reviewed the current psychotropics carefully including drug interactions. Risk benefit ratio favors no change other than as noted in my dictated progress note. Diagnosis: Problems: (1) Anxiety disorder (2) Impulse control disorder (3) Major depressive disorder, recurrent episode (4) Psychosis, atypical (5) Mild cognitive impairment SUDHEER SAPP MD Dec 23, 2017 20:54
--- NOTE | 2017-12-23 21:40 | PN ---
DATE: 12/21/2017 PSYCHIATRIC PROGRESS NOTE This late entry 12/21/2017 covers elements not covered in my initial note. SUBJECTIVE: I met with the patient in the evening. The patient slept 9 hours previous evening. The patient remains somewhat obsessive, wanting Requip for her Parkinson's. Dr. Hunter is seeing her from a neurological standpoint and she is on Sinemet. From a psychiatric standpoint, she is calm and cooperative early, woke up around midnight, more confused. REVIEW OF SYSTEMS: Ambulation impaired with walker. No CV, , pulmonary, eye, ENT system symptoms on review. MENTAL STATUS EXAM: Oriented to herself and situation. Speech is coherent, abstraction fair, computation impaired, language function intact, attention span short. Mood and affect somewhat anxious, labile. Reviewed her history at length, an ongoing depressive symptoms. LABORATORY DATA: Reviewed. IMPRESSION: Unchanged from initial note. PLAN: Continue psychotropics from initial note. TSH is 5.7. We will defer to Dr. Hughes. We will increase Zoloft gradually. SUDHEER SAPP MD DR: MAYLIN/robby JOB#: [id number] / [id number]
--- NOTE | 2017-12-24 01:07 | PN ---
DATE: 12/22/2017 This late entry 12/22/2017 covers elements not covered in my initial note. SUBJECTIVE: I met with the patient in the evening. The patient slept 5-3/4 hours previous evening, again fixated on wanting ____. She manifested no climbing out of her bed on to others previous evening, reviewed her history. Reportedly, in [place]. She has 1 son and 2 grandchildren in [place]. She has been living with them for many years and then came to this area for reasons unclear perhaps to be closer to her sister. She has been quite depressed. No CV, , pulmonary, eye system symptoms on review. Gait unsteady. MENTAL STATUS EXAM: Oriented to herself and situation. Speech has some latency, coherent. Abstraction fair, computation impaired, language function intact. Mood and affect remain somewhat depressed. LABORATORY DATA: Reviewed. IMPRESSION: Unchanged from initial note. PLAN: No change from a psychiatric standpoint and may increase Zoloft gradually. She is also somewhat obsessive, may change to Luvox or Cymbalta. IMPRESSION: Unchanged from initial note. PLAN: As noted in my initial note plus changes noted above. MAN Victor Hugo SAPP MD DR: MAYLIN/robby JOB#: [id number] / [id number]
[2017-12-24 05:46] VITALS: BP 134/74
[2017-12-24] MEDS: CARBIDOPA/LEVODOPA 25/100MG TABLET PO SCH ×4 (06:15→18:17)
[2017-12-24] MEDS: QUEtiapine 25 MG TABLET. PO SCH ×3 (09:00→21:01)
[2017-12-24] MEDS: BENZTROPINE MESYLATE 0.5 MG TABLET PO SCH ×2 (09:00→21:00)
[2017-12-24] MEDS: LISINOPRIL 20 MG TABLET PO SCH (09:00)
[2017-12-24] MEDS: LACTOBACILLUS RHAMNOSUS GG 1 CAPSULE. PO SCH ×2 (09:01→21:01)
[2017-12-24] MEDS: ACETAMINOPHEN 325 MG TABLET PO PRN (09:35)
[2017-12-24 16:35] VITALS: BP 113/68
[2017-12-24] MEDS: traZODone 50 MG TABLET. PO PRN (21:01)
--- NOTE | 2017-12-24 22:46 | PN ---
DATE: 12/23/2017 PSYCHIATRIC PROGRESS NOTE This is a late entry 12/23/2017, covers elements not covered in my initial note. SUBJECTIVE: I met with the patient in the evening, staffed at treatment team meeting with the entire team in the morning. Review of the patient's psychosocial history. served in [place] and he is . She used to live with the son and his family in [place] for about 15 years and then they had to move back to this area in [place] closer to her sister. The patient states she has been depressed a long time, has had a history of multiple overdose, suicide attempts, slept 7-1/4 hours, remains somewhat obsessive, fixated on wanting Requip for her Parkinson's and I will defer to Dr. Hunter, Neurology. REVIEW OF SYSTEMS: Ambulation impaired with walker. No CV, , pulmonary, eye, ENT system symptoms on review. MENTAL STATUS EXAM: Oriented to herself and situation. Speech has some latency, coherent. Abstraction fair, computation impaired, language function intact, attention span short. Mood and affect at times labile, depressed. No active suicidal ideation. LABORATORY DATA: Reviewed. IMPRESSION: Unchanged from initial note, major depressive disorder, recurrent; impulse control disorder; anxiety disorder, unspecified. PLAN: Start Luvox 25 mg a day, increasing to 50 mg a day in 3 days for her OCD symptoms. Continue rest of the psychotropics unchanged. MAN Victor Hugo SAPP MD DR: MAYLIN/robby JOB#: [id number] / [id number]
--- NOTE | 2017-12-24 23:02 | PDOC ---
Exam Note: Tre Note: Please also refer to the separate dictated note~for this date of service dictated separately.~Patient seen individually. Discussed the patient with Nursing staff reviewed the chart.~Reviewed interim history and current functioning. Reviewed vital signs,~Labs/ Radiology~and current medications noted below. Continue current treatment with the changes noted in the dictated addendum note Assessment: Vital Signs: Vital Signs Date Time Temp Pulse Resp B/P (MAP) Pulse Ox O2 Delivery O2 Flow Rate FiO2 12/24/17 16:35 97.5 67 18 113/68 (83) 97 Room Air I&O Intake and Output 12/24/17 06:59 Intake Total 495 ml Balance 495 ml Intake Oral 495 ml Current Medications: Meds: Current Medications Lisinopril (Prinivil) 20 mg DAILY PO Last administered on 12/24/17 09:00; Start 12/18/17 at 09:00 Olanzapine (ZyPREXA ZYDIS) 2.5 mg PRN Q2HR PRN PO ANXIETY / AGITATION Last administered on 12/18/17at 12:15; Start 12/18/17 at 06:00 Benztropine Mesylate (Cogentin) 0.5 mg BID PO Last administered on 12/24/17 21: 00; Start 12/18/17 at 09:00 Carbidopa/Levodopa (Sinemet 25/100) 2 tab [id number] PO Last administered on 12/24at 18:17; Start 12/18/17 at 12:00 Lactobacillus Rhamnosus (Culturelle) 1 cap BID PO Last administered on at 21:01; Start 12/18/17 at 09:00 Quetiapine Fumarate (SEROquel) 25 mg BID PO Last administered on 12/20/17at 08:05 ; Start 12/18/17 at 21:00; Stop 12/20/17 at 18:27; Status DC Acetaminophen (Tylenol) 650 mg PRN Q6HRS PRN PO PAIN / TEMP Last administered on 12/24/17at 09:35; Start 12/18/17 at 06:15 Multi-Ingredient Ointment (Analgesic [place]) 1 constantine PRN QID PRN TP MUSCLE PAIN; Start 12/18/17 at 06:15 Al Hydroxide/Mg Hydroxide (Mylanta Plus Xs) 15 ml PRN AFTMEALHC PRN PO DYSPEPSIA Last administered on 12/21/17at 15:27; Start 12/18/17 at 06:15 Magnesium Hydroxide (Milk Of Magnesia) 2,400 mg PRN QHS PRN PO CONSTIPATION; Start 12/18/17 at 06:15 Sertraline HCl (Zoloft) 25 mg DAILY PO Last administered on 12/20/17at 08:05; Start 12/19/17 at 09:00; Stop 12/20/17 at 17:02; Status DC Trazodone HCl (Desyrel) 50 mg PRN QHS PRN PO insomnia Last administered on at 21:01; Start 12/18/17 at 18:30 Duloxetine HCl (Cymbalta) 30 mg DAILY PO Last administered on 12/23/17at 08:44; Start 12/21/17 at 09:00; Stop 12/23/17 at 12:17; Status DC Quetiapine Fumarate (SEROquel) 25 mg TID PO Last administered on 12/24/17at 21:01 ; Start 12/20/17 at 21:00 Loperamide HCl (Imodium) 4 mg PRN DAILY PRN PO diarrhea Last administered on 12/22/17at 10:14; Start 12/21/17 at 15:45 Loperamide HCl (Imodium) 2 mg PRN Q15MIN PRN PO DIARRHEA Last administered on at 16:47; Start 12/21/17 at 15:45 Fluvoxamine Maleate (Luvox) 25 mg HS PO Last administered on 12/24/17at 21:02; Start 12/23/17 at 21:00; Stop 12/26/17 at 09:00 Fluvoxamine Maleate (Luvox) 50 mg HS PO ; Start 12/26/17 at 21:00 Active Scripts Active Reported Benztropine Mesylate 0.5 Mg Tablet 0.5 Mg PO BID Zyprexa Zydis (Olanzapine) 5 Mg Tab.rapdis 2.5 Mg PO PRN Q2HR PRN Seroquel Xr (Quetiapine Fumarate) 50 Mg Tab.er.24h 50 Mg PO HS Lisinopril 20 Mg Tablet 20 Mg PO DAILY Culturelle (Lactobacillus Rhamnosus Gg) 1 Each Capsule 1 Each PO BID Carbidopa-Levo 25-100 Mg Odt (Carbidopa/Levodopa) 1 Each Tab.rapdis 2 Each PO QID I have reviewed the current psychotropics carefully including drug interactions. Risk benefit ratio favors no change other than as noted in my dictated progress note. Diagnosis: Problems: (1) Anxiety disorder (2) Impulse control disorder (3) Major depressive disorder, recurrent episode (4) Psychosis, atypical (5) Mild cognitive impairment SUDHEER SAPP MD Dec 24, 2017 23:02
[2017-12-25] MEDS: CARBIDOPA/LEVODOPA 25/100MG TABLET PO SCH ×4 (06:05→17:23)
[2017-12-25 06:14] VITALS: BP 151/73
[2017-12-25 07:57] LABS: BASO # 0.1 x10^3/uL (0.0-0.2); BASO % 1 % (0-3); EOS # 0.2 x10^3/uL (0.0-0.7); EOS % 3 % (0-3); HEMATOCRIT 37.9 % (36.0-47.0); HEMOGLOBIN 12.7 g/dL (12.0-15.5); LYMPH # 1.3 x10^3/uL (1.0-4.8); LYMPH % 23 % (24-48); MEAN CORPUSCULAR HEMOGLOBIN 30 pg (25-35); MEAN CORPUSCULAR HGB CONC 34 g/dL (31-37); MEAN CORPUSCULAR VOLUME 91 fL (79-100); MONO # 0.5 x10^3/uL (0.0-1.1); MONO % 10 % (0-9); NEUT # 3.7 x10^3uL (1.8-7.7); NEUT % 63 % (31-73); PLATELET COUNT 261 x10^3/uL (140-400); RED BLOOD COUNT 4.18 x10^6/uL (3.50-5.40); RED CELL DISTRIBUTION WIDTH 14.7 % (11.5-14.5); WHITE BLOOD COUNT 5.8 x10^3/uL (4.0-11.0)
[2017-12-25] MEDS: LACTOBACILLUS RHAMNOSUS GG 1 CAPSULE. PO SCH ×2 (08:07→19:54)
[2017-12-25] MEDS: LISINOPRIL 20 MG TABLET PO SCH (08:08)
[2017-12-25] MEDS: QUEtiapine 25 MG TABLET. PO SCH ×3 (08:08→17:23)
[2017-12-25] MEDS: BENZTROPINE MESYLATE 0.5 MG TABLET PO SCH ×2 (08:09→19:56)
[2017-12-25 08:30] LABS: ALBUMIN 3.8 g/dL (3.4-5.0); ALBUMIN/GLOBULIN RATIO 1.2 (1.0-1.7); CREATININE 0.7 mg/dL (0.6-1.0); GFR 82.5; TOTAL BILIRUBIN 0.5 mg/dL (0.2-1.0); TOTAL PROTEIN 7.1 g/dL (6.4-8.2)
[2017-12-25 16:14] VITALS: BP 147/68
--- NOTE | 2017-12-25 22:33 | PDOC ---
Exam Note: Tre Note: Please also refer to the separate dictated note~for this date of service dictated separately.~Patient seen individually. Discussed the patient with Nursing staff reviewed the chart.~Reviewed interim history and current functioning. Reviewed vital signs,~Labs/ Radiology~and current medications noted below. Continue current treatment with the changes noted in the dictated addendum note Assessment: Vital Signs: Vital Signs Date Time Temp Pulse Resp B/P (MAP) Pulse Ox O2 Delivery O2 Flow Rate FiO2 12/25/17 16:14 98.5 63 18 147/68 (94) 97 Room Air I&O Intake and Output 12/25/17 06:59 Intake Total 840 ml Balance 840 ml Intake Oral 840 ml Labs: Laboratory Tests Test 12/25/17 07:13 White Blood Count 5.8 x10^3/uL (4.0-11.0) Red Blood Count 4.18 x10^6/uL (3.50-5.40) Hemoglobin 12.7 g/dL (12.0-15.5) Hematocrit 37.9 % (36.0-47.0) Mean Corpuscular Volume 91 fL (79-100) Mean Corpuscular Hemoglobin 30 pg (25-35) Mean Corpuscular Hemoglobin Concent 34 g/dL (31-37) Red Cell Distribution Width 14.7 % (11.5-14.5) H Platelet Count 261 x10^3/uL (140-400) Neutrophils (%) (Auto) 63 % (31-73) Lymphocytes (%) (Auto) 23 % (24-48) L Monocytes (%) (Auto) 10 % (0-9) H Eosinophils (%) (Auto) 3 % (0-3) Basophils (%) (Auto) 1 % (0-3) Neutrophils # (Auto) 3.7 x10^3uL (1.8-7.7) Lymphocytes # (Auto) 1.3 x10^3/uL (1.0-4.8) Monocytes # (Auto) 0.5 x10^3/uL (0.0-1.1) Eosinophils # (Auto) 0.2 x10^3/uL (0.0-0.7) Basophils # (Auto) 0.1 x10^3/uL (0.0-0.2) Sodium Level 140 mmol/L (136-145) Potassium Level 4.0 mmol/L (3.5-5.1) Chloride Level 106 mmol/L (98-107) Carbon Dioxide Level 29 mmol/L (21-32) Anion Gap 5 (6-14) L Blood Urea Nitrogen 17 mg/dL (7-20) Creatinine 0.7 mg/dL (0.6-1.0) Estimated GFR (Cockcroft-Gault) 82.5 BUN/Creatinine Ratio 24 (6-20) H Glucose Level 96 mg/dL (70-99) Calcium Level 9.0 mg/dL (8.5-10.1) Total Bilirubin 0.5 mg/dL (0.2-1.0) Aspartate Amino Transferase (AST) 15 U/L (15-37) Alanine Aminotransferase (ALT) 10 U/L (14-59) L Alkaline Phosphatase 99 U/L (46-116) Total Protein 7.1 g/dL (6.4-8.2) Albumin 3.8 g/dL (3.4-5.0) Albumin/Globulin Ratio 1.2 (1.0-1.7) Current Medications: Meds: Current Medications Lisinopril (Prinivil) 20 mg DAILY PO Last administered on 12/25/17 08:08; Start 12/18/17 at 09:00 Olanzapine (ZyPREXA ZYDIS) 2.5 mg PRN Q2HR PRN PO ANXIETY / AGITATION Last administered on 12/18/17at 12:15; Start 12/18/17 at 06:00 Benztropine Mesylate (Cogentin) 0.5 mg BID PO Last administered on 12/25/17at 19: 56; Start 12/18/17 at 09:00 Carbidopa/Levodopa (Sinemet 25/100) 2 tab [id number] PO Last administered on 12/25 17:23; Start 12/18/17 at 12:00 Lactobacillus Rhamnosus (Culturelle) 1 cap BID PO Last administered on at 19:54; Start 12/18/17 at 09:00 Quetiapine Fumarate (SEROquel) 25 mg BID PO Last administered on 12/20/17at 08:05 ; Start 12/18/17 at 21:00; Stop 12/20/17 at 18:27; Status DC Acetaminophen (Tylenol) 650 mg PRN Q6HRS PRN PO PAIN / TEMP Last administered on 12/24/17at 09:35; Start 12/18/17 at 06:15 Multi-Ingredient Ointment (Analgesic [place]) 1 constantine PRN QID PRN TP MUSCLE PAIN; Start 12/18/17 at 06:15 Al Hydroxide/Mg Hydroxide (Mylanta Plus Xs) 15 ml PRN AFTMEALHC PRN PO DYSPEPSIA Last administered on 12/21/17at 15:27; Start 12/18/17 at 06:15 Magnesium Hydroxide (Milk Of Magnesia) 2,400 mg PRN QHS PRN PO CONSTIPATION; Start 12/18/17 at 06:15 Sertraline HCl (Zoloft) 25 mg DAILY PO Last administered on 12/20/17at 08:05; Start 12/19/17 at 09:00; Stop 12/20/17 at 17:02; Status DC Trazodone HCl (Desyrel) 50 mg PRN QHS PRN PO insomnia Last administered on at 21:01; Start 12/18/17 at 18:30 Duloxetine HCl (Cymbalta) 30 mg DAILY PO Last administered on 12/23/17at 08:44; Start 12/21/17 at 09:00; Stop 12/23/17 at 12:17; Status DC Quetiapine Fumarate (SEROquel) 25 mg TID PO Last administered on 12/25/17at 17:23 ; Start 12/20/17 at 21:00 Loperamide HCl (Imodium) 4 mg PRN DAILY PRN PO diarrhea Last administered on 12/22/17at 10:14; Start 12/21/17 at 15:45 Loperamide HCl (Imodium) 2 mg PRN Q15MIN PRN PO DIARRHEA Last administered on 16:47; Start 12/21/17 at 15:45 Fluvoxamine Maleate (Luvox) 25 mg HS PO Last administered on 12/25/17at 19:55; Start 12/23/17 at 21:00; Stop 12/26/17 at 09:00 Fluvoxamine Maleate (Luvox) 50 mg HS PO ; Start 12/26/17 at 21:00 Active Scripts Active Reported Benztropine Mesylate 0.5 Mg Tablet 0.5 Mg PO BID Zyprexa Zydis (Olanzapine) 5 Mg Tab.rapdis 2.5 Mg PO PRN Q2HR PRN Seroquel Xr (Quetiapine Fumarate) 50 Mg Tab.er.24h 50 Mg PO HS Lisinopril 20 Mg Tablet 20 Mg PO DAILY Culturelle (Lactobacillus Rhamnosus Gg) 1 Each Capsule 1 Each PO BID Carbidopa-Levo 25-100 Mg Odt (Carbidopa/Levodopa) 1 Each Tab.rapdis 2 Each PO QID I have reviewed the current psychotropics carefully including drug interactions. Risk benefit ratio favors no change other than as noted in my dictated progress note. Diagnosis: Problems: (1) Anxiety disorder (2) Impulse control disorder (3) Major depressive disorder, recurrent episode (4) Psychosis, atypical (5) Mild cognitive impairment SUDHEER SAPP MD Dec 25, 2017 22:33
[2017-12-26] MEDS: CARBIDOPA/LEVODOPA 25/100MG TABLET PO SCH ×5 (00:20→16:58)
[2017-12-26 06:03] VITALS: BP 135/51
[2017-12-26] MEDS: QUEtiapine 25 MG TABLET. PO SCH ×3 (07:25→21:04)
[2017-12-26] MEDS: LISINOPRIL 20 MG TABLET PO SCH (07:25)
[2017-12-26] MEDS: BENZTROPINE MESYLATE 0.5 MG TABLET PO SCH ×2 (07:25→21:02)
[2017-12-26] MEDS: LACTOBACILLUS RHAMNOSUS GG 1 CAPSULE. PO SCH ×2 (07:25→21:02)
[2017-12-26 16:14] VITALS: BP 103/54
--- NOTE | 2017-12-26 19:08 | PN ---
DATE: 12/24/2017 This is a late entry for 12/24/2017 and covers the elements not covered in my initial note. SUBJECTIVE: I met with the patient in the evening. The patient slept 6 hours previous night. She had some persistent diarrhea the day before, but better on 12/24/2017. She has had some chronic pain, some tremors consequent to her Parkinson's. Impaired ambulation with walker. REVIEW OF SYSTEM: No CV, , pulmonary, eye system symptoms on review. MENTAL STATUS EXAM: Reasonably oriented. Speech is coherent, abstraction fair, computation impaired, language function intact, attention span short. Mood and affect remain somewhat depressed and obsessive. LABORATORY DATA: Reviewed. IMPRESSION: Unchanged from initial note. PLAN: Luvox is being increased to 50 mg at bedtime starting 12/26/2017. Continue rest of the psychotropics including Seroquel, trazodone, and BuSpar. Defer Parkinson's management to Dr. Hunter. SUDHEER SAPP MD DR: MAYLIN/robby JOB#: [id number] / [id number]
--- NOTE | 2017-12-26 19:12 | PN ---
DATE: 12/25/2017 This is a late entry, 12/25/2017, covers the elements not covered in my initial note. SUBJECTIVE: I met with the patient in the evening. The patient slept 7-1/2 hours previous evening. As I met with her individually, she was having significant tremors of her hands, head and neck area, and I will defer to Dr. Hunter. Nursing staff feel anxiety worsens the tremors. REVIEW OF SYSTEMS: Ambulation impaired with walker. Positive for tremors. No CV, , pulmonary, eye system symptoms on review. MENTAL STATUS EXAM: Reasonably oriented. Speech coherent, abstraction fair, computation impaired, language function intact, attention span short. Mood and affect, somewhat anxious, depressed. No suicidal or homicidal ideation. LABORATORY DATA: Reviewed. IMPRESSION: Unchanged from initial note. PLAN: Continue current psychotropics, increase the Luvox gradually. MAN Victor Hugo SAPP MD DR: MAYLIN/robby JOB#: [id number] / [id number]
--- NOTE | 2017-12-26 20:43 | PDOC ---
Exam Note: Tre Note: Please also refer to the separate dictated note~for this date of service dictated separately.~Patient seen individually. Discussed the patient with Nursing staff reviewed the chart.~Reviewed interim history and current functioning. Reviewed vital signs,~Labs/ Radiology~and current medications noted below. Continue current treatment with the changes noted in the dictated addendum note Assessment: Vital Signs: Vital Signs Date Time Temp Pulse Resp B/P (MAP) Pulse Ox O2 Delivery O2 Flow Rate FiO2 12/26/17 16:14 98.4 84 16 103/54 (70) 97 12/26/17 06:03 Room Air I&O Intake and Output 12/26/17 06:59 Intake Total 1920 ml Balance 1920 ml Intake Oral 1920 ml Current Medications: Meds: Current Medications Lisinopril (Prinivil) 20 mg DAILY PO Last administered on 12/26/17 07:25; Start 12/18/17 at 09:00 Olanzapine (ZyPREXA ZYDIS) 2.5 mg PRN Q2HR PRN PO ANXIETY / AGITATION Last administered on 12/18/17at 12:15; Start 12/18/17 at 06:00 Benztropine Mesylate (Cogentin) 0.5 mg BID PO Last administered on 12/26/17 07: 25; Start 12/18/17 at 09:00 Carbidopa/Levodopa (Sinemet 25/100) 2 tab [id number] PO Last administered on 12/26at 16:58; Start 12/18/17 at 12:00 Lactobacillus Rhamnosus (Culturelle) 1 cap BID PO Last administered on 07:25; Start 12/18/17 at 09:00 Quetiapine Fumarate (SEROquel) 25 mg BID PO Last administered on 12/20/17at 08:05 ; Start 12/18/17 at 21:00; Stop 12/20/17 at 18:27; Status DC Acetaminophen (Tylenol) 650 mg PRN Q6HRS PRN PO PAIN / TEMP Last administered on 12/24/17at 09:35; Start 12/18/17 at 06:15 Multi-Ingredient Ointment (Analgesic [place]) 1 constantine PRN QID PRN TP MUSCLE PAIN; Start 12/18/17 at 06:15 Al Hydroxide/Mg Hydroxide (Mylanta Plus Xs) 15 ml PRN AFTMEALHC PRN PO DYSPEPSIA Last administered on 12/21/17at 15:27; Start 12/18/17 at 06:15 Magnesium Hydroxide (Milk Of Magnesia) 2,400 mg PRN QHS PRN PO CONSTIPATION; Start 12/18/17 at 06:15 Sertraline HCl (Zoloft) 25 mg DAILY PO Last administered on 12/20/17at 08:05; Start 12/19/17 at 09:00; Stop 12/20/17 at 17:02; Status DC Trazodone HCl (Desyrel) 50 mg PRN QHS PRN PO insomnia Last administered on at 21:01; Start 12/18/17 at 18:30 Duloxetine HCl (Cymbalta) 30 mg DAILY PO Last administered on 12/23/17at 08:44; Start 12/21/17 at 09:00; Stop 12/23/17 at 12:17; Status DC Quetiapine Fumarate (SEROquel) 25 mg TID PO Last administered on 12/26/17at 13:41 ; Start 12/20/17 at 21:00 Loperamide HCl (Imodium) 4 mg PRN DAILY PRN PO diarrhea Last administered on 12/22/17at 10:14; Start 12/21/17 at 15:45 Loperamide HCl (Imodium) 2 mg PRN Q15MIN PRN PO DIARRHEA Last administered on at 16:47; Start 12/21/17 at 15:45 Fluvoxamine Maleate (Luvox) 25 mg HS PO Last administered on 12/25/17at 19:55; Start 12/23/17 at 21:00; Stop 12/26/17 at 09:00; Status DC Fluvoxamine Maleate (Luvox) 50 mg HS PO ; Start 12/26/17 at 21:00 Active Scripts Active Reported Benztropine Mesylate 0.5 Mg Tablet 0.5 Mg PO BID Zyprexa Zydis (Olanzapine) 5 Mg Tab.rapdis 2.5 Mg PO PRN Q2HR PRN Seroquel Xr (Quetiapine Fumarate) 50 Mg Tab.er.24h 50 Mg PO HS Lisinopril 20 Mg Tablet 20 Mg PO DAILY Culturelle (Lactobacillus Rhamnosus Gg) 1 Each Capsule 1 Each PO BID Carbidopa-Levo 25-100 Mg Odt (Carbidopa/Levodopa) 1 Each Tab.rapdis 2 Each PO QID I have reviewed the current psychotropics carefully including drug interactions. Risk benefit ratio favors no change other than as noted in my dictated progress note. Diagnosis: Problems: (1) Anxiety disorder (2) Impulse control disorder (3) Major depressive disorder, recurrent episode (4) Psychosis, atypical (5) Mild cognitive impairment SUDHEER SAPP MD Dec 26, 2017 20:42
--- NOTE | 2017-12-26 21:08 | PN ---
DATE: 12/26/2017 REFERRING PHYSICIAN: Dr. Gutierrez. SUBJECTIVE: The patient denies any new medical or neurological complaints. She denies any recent falls or recent increase of tremor or rigidity. OBJECTIVE: GENERAL: Well-developed, well-nourished female, not in acute distress. VITAL SIGNS: Blood pressure 123/52, respiratory rate 16, pulse is 75 and regular, temperature 98.4, and oxygen saturation 96% on room air. HEENT: Normocephalic, atraumatic, otherwise unremarkable. NECK: Supple. Negative for carotid bruit, lymphadenopathy or thyromegaly. LUNGS: Clear to A and P. CARDIOVASCULAR: Regular rhythm. Normal S1, S2. ABDOMEN: Soft. Bowel sounds positive. EXTREMITIES: Negative for cyanosis, clubbing or pitting edema. NEUROLOGICAL EXAM: Mental Status: The patient is alert and oriented x 3. Speech is fluent. There is no language dysfunction. The patient recalls 2/3 immediately and after 1 and 3 minutes. Judgment abstract and thinking are fair. The patient denies hallucination or delusion. Cranial nerves are intact. Motor examination revealed normal pinprick. Motor examination revealed no focal muscle bulk was seen. The strength was 5/5 throughout. No resting or postural or kinetic tremors noted today. Sensory examination revealed normal pinprick and light touch senses. Deep tendon reflexes were symmetric and active without pathology responses. Gait: The patient uses a walker to support her gait; however, the patient can walk without a walker for a short distance and during the walking, the patient swings her arms bilaterally and symmetrically. IMPRESSION: 1. Parkinson's disease, presented with resting tremor of the upper extremities; however, the tremor is not present today during this interview. 2. Multiple psychiatric problems include seizure, depression, and anxiety disorders with intermittent psychotic features. RECOMMENDATIONS: We will continue with the current management with carbidopa/levodopa and benztropine. M Clarence HINOJOSA MD DR: SCOTT/robby JOB#: [id number] / [id number]
--- NOTE | 2017-12-26 21:37 | PN ---
DATE: 12/22/2017 SUBJECTIVE: The patient denies any new medical or neurological complaints; however, it was reported that she has had some behavior disturbances in the last 48 hours including change in behavior with ____. The patient did not recall the event. She sleeps and eats well. She denies worsening of tremor or recent falls. OBJECTIVE: GENERAL: Well-developed, well-nourished female, not in acute distress. VITAL SIGNS: Blood pressure 131/54, respiratory rate 16, pulse is 69, temperature 98, oxygen saturation 93% on room air. HEENT: Normocephalic, atraumatic, otherwise unremarkable. NECK: Supple. Negative for carotid bruit, lymphadenopathy or thyromegaly. LUNGS: Clear to A and P. CARDIOVASCULAR: Regular rhythm, normal S1, S2. ABDOMEN: Soft. Bowel sounds positive. EXTREMITIES: Negative for cyanosis, clubbing or pitting edema. NEUROLOGICAL EXAM: Mental Status: The patient is alert and oriented x 3. Speech is fluent. There is no language dysfunction. Memory, judgment, and abstract thinking are fair. The patient denies hallucination or delusion. Cranial nerves are intact. Motor Examination: No focal muscle bulk was seen. The tone is normal. The strength is 4/5 throughout. No obvious tremor or rigidity noted in this evaluation. Sensory examination: Normal pinprick, light touch senses. Deep tendon reflexes are symmetric and hypoactive with absent Achilles responses. Gait: The patient is able to stand up using a walker, stance is steady. IMPRESSION: 1. Parkinson disease - stable on carbidopa/levodopa 25/100 two tablets q.i.d. and benztropine 0.5 mg b.i.d. 2. Major depression with intermittent psychotic features and suicidal ideation. 3. Anxiety. RECOMMENDATIONS: Continue with current management for Parkinson disease and continue with current medical and psychiatric care. M Clarence HINOJOSA MD DR: SCOTT/robby JOB#: [id number] / [id number]
--- NOTE | 2017-12-27 00:29 | PN ---
DATE: 12/24/2017 SUBJECTIVE: The patient states that she does not feel good. She related that to a bout of diarrhea yesterday. She also complains of intermittent hypogastric pain; however, her diarrhea is better today. She denies any new medical complaints. She also complains of intermittent resting tremor of the upper extremities. OBJECTIVE: GENERAL: Well-developed, well-nourished female, not in acute distress. VITAL SIGNS: Blood pressure 130/68, respiratory rate 18, pulse is 67 and regular, temperature 97.5, oxygen saturation is 97% on room air. HEENT: Normocephalic, atraumatic, otherwise unremarkable. NECK: Supple. Negative for carotid bruit, lymphadenopathy or thyromegaly. LUNGS: Clear to A and P. CARDIOVASCULAR: Regular heart rhythm. Normal S1, S2. ABDOMEN: Soft. Bowel sounds positive. There is mild tenderness of the hypogastric region. No palpable mass or organomegaly. EXTREMITIES: Negative for cyanosis, clubbing or pitting edema. NEUROLOGIC: Mental status: The patient is alert and oriented x 3. The speech is fluent. There is no language dysfunction. Cranial nerves are intact. Motor: No focal muscle bulk was seen. The strength is 4/5 throughout. The patient has mild resting tremor of both hands. Sensory examination is normal to pinprick, light touch, temperature, position senses. Deep tendon reflexes were symmetric and active without pathology responses. Gait: The stance is steady. The patient can walk without the walker and she swings her arms. However, it was advised to use the walker all the times. IMPRESSION: 1. Parkinson disease -- stable. However, she has had intermittent resting tremor in the last 24 hours. 2. Major depression with anxiety. RECOMMENDATIONS: We will continue with current management for Parkinson disease with carbidopa/levodopa 25/100 to take 2 tablets q.i.d. and benztropine 0.5 mg b.i.d. M Clarenec HINOJOSA MD DR: SCOTT/robby JOB#: [id number] / [id number]
[2017-12-27] MEDS: CARBIDOPA/LEVODOPA 25/100MG TABLET PO SCH ×5 (05:58→19:32)
[2017-12-27] MEDS: ACETAMINOPHEN 325 MG TABLET PO PRN (06:01)
[2017-12-27 06:04] VITALS: BP 169/80
[2017-12-27] MEDS: BENZTROPINE MESYLATE 0.5 MG TABLET PO SCH ×2 (08:32→19:32)
[2017-12-27] MEDS: LACTOBACILLUS RHAMNOSUS GG 1 CAPSULE. PO SCH ×2 (08:32→19:32)
[2017-12-27] MEDS: LISINOPRIL 20 MG TABLET PO SCH (08:33)
[2017-12-27] MEDS: QUEtiapine 25 MG TABLET. PO SCH ×3 (08:33→19:32)
[2017-12-27] MEDS: CHOLECALCIFEROL (VITAMIN D3) 50,000 UNIT CAPSULE PO SCH (14:09)
[2017-12-27 16:02] VITALS: BP 148/71
--- NOTE | 2017-12-27 19:59 | PDOC ---
Exam Note: Tre Note: Please also refer to the separate dictated note~for this date of service dictated separately.~Patient seen individually. Discussed the patient with Nursing staff reviewed the chart.~Reviewed interim history and current functioning. Reviewed vital signs,~Labs/ Radiology~and current medications noted below. Continue current treatment with the changes noted in the dictated addendum note Assessment: Vital Signs: Vital Signs Date Time Temp Pulse Resp B/P (MAP) Pulse Ox O2 Delivery O2 Flow Rate FiO2 12/27/17 16:02 97.2 66 17 148/71 (96) 98 12/26/17 06:03 Room Air I&O Intake and Output 12/27/17 06:59 Intake Total 1445 ml Balance 1445 ml Intake Oral 1445 ml Current Medications: Meds: Current Medications Lisinopril (Prinivil) 20 mg DAILY PO Last administered on 12/27/17at 08:33; Start 12/18/17 at 09:00 Olanzapine (ZyPREXA ZYDIS) 2.5 mg PRN Q2HR PRN PO ANXIETY / AGITATION Last administered on 12/18/17at 12:15; Start 12/18/17 at 06:00 Benztropine Mesylate (Cogentin) 0.5 mg BID PO Last administered on 12/27/17 19: 32; Start 12/18/17 at 09:00 Carbidopa/Levodopa (Sinemet 25/100) 2 tab [id number] PO Last administered on 12/27 19:32; Start 12/18/17 at 12:00 Lactobacillus Rhamnosus (Culturelle) 1 cap BID PO Last administered on 19:32; Start 12/18/17 at 09:00 Quetiapine Fumarate (SEROquel) 25 mg BID PO Last administered on 12/20/17at 08:05 ; Start 12/18/17 at 21:00; Stop 12/20/17 at 18:27; Status DC Acetaminophen (Tylenol) 650 mg PRN Q6HRS PRN PO PAIN / TEMP Last administered on 12/27/17at 06:01; Start 12/18/17 at 06:15 Multi-Ingredient Ointment (Analgesic [place]) 1 constantine PRN QID PRN TP MUSCLE PAIN; Start 12/18/17 at 06:15 Al Hydroxide/Mg Hydroxide (Mylanta Plus Xs) 15 ml PRN AFTMEALHC PRN PO DYSPEPSIA Last administered on 12/21/17 15:27; Start 12/18/17 at 06:15 Magnesium Hydroxide (Milk Of Magnesia) 2,400 mg PRN QHS PRN PO CONSTIPATION; Start 12/18/17 at 06:15 Sertraline HCl (Zoloft) 25 mg DAILY PO Last administered on 12/20/17 08:05; Start 12/19/17 at 09:00; Stop 12/20/17 at 17:02; Status DC Trazodone HCl (Desyrel) 50 mg PRN QHS PRN PO insomnia Last administered on 21:01; Start 12/18/17 at 18:30 Duloxetine HCl (Cymbalta) 30 mg DAILY PO Last administered on 12/23/17at 08:44; Start 12/21/17 at 09:00; Stop 12/23/17 at 12:17; Status DC Quetiapine Fumarate (SEROquel) 25 mg TID PO Last administered on 12/27/17at 19:32 ; Start 12/20/17 at 21:00 Loperamide HCl (Imodium) 4 mg PRN DAILY PRN PO diarrhea Last administered on 10:14; Start 12/21/17 at 15:45 Loperamide HCl (Imodium) 2 mg PRN Q15MIN PRN PO DIARRHEA Last administered on 16:47; Start 12/21/17 at 15:45 Fluvoxamine Maleate (Luvox) 25 mg HS PO Last administered on 12/25/17at 19:55; Start 12/23/17 at 21:00; Stop 12/26/17 at 09:00; Status DC Fluvoxamine Maleate (Luvox) 50 mg HS PO Last administered on 12/27/17 19:32; Start 12/26/17 at 21:00 Vitamin D (Vitamin D3) 50,000 unit WEEKLY PO Last administered on 12/27/17at 14: 09; Start 12/27/17 at 13:45 Active Scripts Active Reported Benztropine Mesylate 0.5 Mg Tablet 0.5 Mg PO BID Zyprexa Zydis (Olanzapine) 5 Mg Tab.rapdis 2.5 Mg PO PRN Q2HR PRN Seroquel Xr (Quetiapine Fumarate) 50 Mg Tab.er.24h 50 Mg PO HS Lisinopril 20 Mg Tablet 20 Mg PO DAILY Culturelle (Lactobacillus Rhamnosus Gg) 1 Each Capsule 1 Each PO BID Carbidopa-Levo 25-100 Mg Odt (Carbidopa/Levodopa) 1 Each Tab.rapdis 2 Each PO QID I have reviewed the current psychotropics carefully including drug interactions. Risk benefit ratio favors no change other than as noted in my dictated progress note. Diagnosis: Problems: (1) Anxiety disorder (2) Impulse control disorder (3) Major depressive disorder, recurrent episode (4) Psychosis, atypical (5) Mild cognitive impairment SUDHEER SAPP MD Dec 27, 2017 19:59
--- NOTE | 2017-12-27 22:49 | PN ---
DATE: 12/26/2017 PSYCHIATRIC PROGRESS NOTE This is a late entry for 12/26/2017, covers elements not covered in my initial note of 12/26/2017. SUBJECTIVE: I met with the patient in the evening. The patient slept 7-1/4 hours previous evening. She remains somewhat anxious, labile at times. Was aggressive with another patient, somewhat touchy feely per nursing report, but does redirect. She for the most part is trying to be helpful to others, but does not recognize when this can be overbearing. I processed this with her. REVIEW OF SYSTEMS: Ambulation impaired with walker. No CV, , pulmonary, eye, ENT system symptoms on review. She is having parkinsonian tremors. MENTAL STATUS EXAM: Oriented to herself and situation. Speech is coherent, somewhat pressured at times. Abstraction fair, computation impaired, language function intact, attention span short. Mood and affect somewhat anxious, labile, showing improvement. LABORATORY DATA: Reviewed. IMPRESSION: Unchanged from initial note. PLAN: Continue psychotropics from initial note including the Cogentin, Sinemet, Seroquel along with trazodone, BuSpar, Luvox. The latter is being increased to 50 mg a day. SUDHEER SAPP MD DR: MAYLIN/robby JOB#: [id number] / [id number]
[2017-12-28 06:07] VITALS: BP 151/73
[2017-12-28] MEDS: CARBIDOPA/LEVODOPA 25/100MG TABLET PO SCH ×4 (06:26→23:47)
[2017-12-28] MEDS: LACTOBACILLUS RHAMNOSUS GG 1 CAPSULE. PO SCH ×2 (08:36→20:04)
[2017-12-28] MEDS: LISINOPRIL 20 MG TABLET PO SCH (08:36)
[2017-12-28] MEDS: QUEtiapine 25 MG TABLET. PO SCH ×3 (08:36→20:05)
[2017-12-28] MEDS: BENZTROPINE MESYLATE 0.5 MG TABLET PO SCH ×2 (08:36→20:05)
[2017-12-28 16:14] VITALS: BP 103/58
--- NOTE | 2017-12-28 21:40 | PDOC ---
Exam Note: Tre Note: Please also refer to the separate dictated note~for this date of service dictated separately.~Patient seen individually. Discussed the patient with Nursing staff reviewed the chart.~Reviewed interim history and current functioning. Reviewed vital signs,~Labs/ Radiology~and current medications noted below. Continue current treatment with the changes noted in the dictated addendum note Assessment: Vital Signs: Vital Signs Date Time Temp Pulse Resp B/P (MAP) Pulse Ox O2 Delivery O2 Flow Rate FiO2 12/28/17 16:14 98.0 56 18 103/58 (73) 98 Room Air I&O Intake and Output 12/28/17 07:00 Intake Total 1800 ml Balance 1800 ml Intake Oral 1800 ml Current Medications: Meds: Current Medications Lisinopril (Prinivil) 20 mg DAILY PO Last administered on 12/28/17at 08:36; Start 12/18/17 at 09:00 Olanzapine (ZyPREXA ZYDIS) 2.5 mg PRN Q2HR PRN PO ANXIETY / AGITATION Last administered on 12/18/17at 12:15; Start 12/18/17 at 06:00 Benztropine Mesylate (Cogentin) 0.5 mg BID PO Last administered on 12/28/17 20 :05; Start 12/18/17 at 09:00 Carbidopa/Levodopa (Sinemet 25/100) 2 tab [id number] PO Last administered on 04/07at 17:49; Start 12/18/17 at 12:00 Lactobacillus Rhamnosus (Culturelle) 1 cap BID PO Last administered on at 20:04; Start 12/18/17 at 09:00 Quetiapine Fumarate (SEROquel) 25 mg BID PO Last administered on 12/20/17at 08:05 ; Start 12/18/17 at 21:00; Stop 12/20/17 at 18:27; Status DC Acetaminophen (Tylenol) 650 mg PRN Q6HRS PRN PO PAIN / TEMP Last administered on 12/27/17at 06:01; Start 12/18/17 at 06:15 Multi-Ingredient Ointment (Analgesic [place]) 1 constantine PRN QID PRN TP MUSCLE PAIN; Start 12/18/17 at 06:15 Al Hydroxide/Mg Hydroxide (Mylanta Plus Xs) 15 ml PRN AFTMEALHC PRN PO DYSPEPSIA Last administered on 12/21/17at 15:27; Start 12/18/17 at 06:15 Magnesium Hydroxide (Milk Of Magnesia) 2,400 mg PRN QHS PRN PO CONSTIPATION; Start 12/18/17 at 06:15 Sertraline HCl (Zoloft) 25 mg DAILY PO Last administered on 12/20/17 08:05; Start 12/19/17 at 09:00; Stop 12/20/17 at 17:02; Status DC Trazodone HCl (Desyrel) 50 mg PRN QHS PRN PO insomnia Last administered on 21:01; Start 12/18/17 at 18:30 Duloxetine HCl (Cymbalta) 30 mg DAILY PO Last administered on 12/23/17at 08:44; Start 12/21/17 at 09:00; Stop 12/23/17 at 12:17; Status DC Quetiapine Fumarate (SEROquel) 25 mg TID PO Last administered on 12/28/17at 20: 05; Start 12/20/17 at 21:00 Loperamide HCl (Imodium) 4 mg PRN DAILY PRN PO diarrhea Last administered on 12/22/17at 10:14; Start 12/21/17 at 15:45 Loperamide HCl (Imodium) 2 mg PRN Q15MIN PRN PO DIARRHEA Last administered on at 16:47; Start 12/21/17 at 15:45 Fluvoxamine Maleate (Luvox) 25 mg HS PO Last administered on 12/25/17at 19:55; Start 12/23/17 at 21:00; Stop 12/26/17 at 09:00; Status DC Fluvoxamine Maleate (Luvox) 50 mg HS PO Last administered on 12/28/17at 20:04; Start 12/26/17 at 21:00; Stop 12/29/17 at 09:00 Vitamin D (Vitamin D3) 50,000 unit WEEKLY PO Last administered on 12/27/17at 14: 09; Start 12/27/17 at 13:45 Fluvoxamine Maleate (Luvox) 75 mg QHS PO ; Start 12/29/17 at 21:00 Active Scripts Active Reported Benztropine Mesylate 0.5 Mg Tablet 0.5 Mg PO BID Zyprexa Zydis (Olanzapine) 5 Mg Tab.rapdis 2.5 Mg PO PRN Q2HR PRN Seroquel Xr (Quetiapine Fumarate) 50 Mg Tab.er.24h 50 Mg PO HS Lisinopril 20 Mg Tablet 20 Mg PO DAILY Culturelle (Lactobacillus Rhamnosus Gg) 1 Each Capsule 1 Each PO BID Carbidopa-Levo 25-100 Mg Odt (Carbidopa/Levodopa) 1 Each Tab.rapdis 2 Each PO QID I have reviewed the current psychotropics carefully including drug interactions. Risk benefit ratio favors no change other than as noted in my dictated progress note. Diagnosis: Problems: (1) Anxiety disorder (2) Impulse control disorder (3) Major depressive disorder, recurrent episode (4) Psychosis, atypical (5) Mild cognitive impairment SUDHEER SAPP MD Dec 28, 2017 21:40
--- NOTE | 2017-12-29 01:18 | PN ---
DATE: 12/27/2017 This is a late entry, 12/27/2017, covers the elements not covered in my initial note, 12/27/2017. SUBJECTIVE: I met with the patient in the evening. The patient slept 7-3/4 hours previous evening. Overall, the patient has been somewhat anxious at times, which worsens her tremors, but otherwise cooperative. REVIEW OF SYSTEMS: Ambulation impaired with walker and tremors consequent to Parkinson's. No CV, , pulmonary, eye system, symptoms on review. MENTAL STATUS EXAM: Oriented toward self, situation. Speech is coherent, abstraction fair, computation impaired, language function intact, attention span short. Mood and affect showing improvement. LABORATORY DATA: Reviewed. IMPRESSION: Major depressive disorder, recurrent; anxiety disorder, unspecified; impulse control disorder, unspecified. PLAN: From a psychiatric standpoint, continue Seroquel 25 mg 0900, 1300, 1700; Zyprexa as needed, trazodone as needed bedtime, Luvox 50 mg daily. We will increase gradually, maintain BuSpar 10 mg twice a day. MAN Victor Hugo SAPP MD DR: MAYLIN/robby JOB#: [id number] / [id number]
[2017-12-29] MEDS: CARBIDOPA/LEVODOPA 25/100MG TABLET PO SCH ×4 (05:53→18:39)
[2017-12-29 06:03] VITALS: BP 177/74
[2017-12-29] MEDS: LACTOBACILLUS RHAMNOSUS GG 1 CAPSULE. PO SCH ×2 (08:46→20:52)
[2017-12-29] MEDS: LISINOPRIL 20 MG TABLET PO SCH (08:46)
[2017-12-29] MEDS: QUEtiapine 25 MG TABLET. PO SCH ×4 (08:46→20:52)
[2017-12-29] MEDS: BENZTROPINE MESYLATE 0.5 MG TABLET PO SCH ×2 (08:47→20:52)
[2017-12-29 13:44] LABS: BACTERIA,URINE 0 /HPF (0-FEW); BILIRUBIN,URINE NEG (NEG); CLARITY,URINE CLEAR; COLOR,URINE YELLOW; GLUCOSE,URINE NEG (NEG); NITRITE,URINE NEG (NEG); RBC,URINE 0 /HPF (0-2); SQUAMOUS EPITHELIAL CELL,UR OCC /LPF; UROBILINOGEN,URINE 0.2 mg/dL (0.2 mg/dL); WBC,URINE 0 /HPF (0-4)
[2017-12-29 16:03] VITALS: BP 124/67
--- NOTE | 2017-12-29 18:15 | PN ---
DATE: 12/28/2017 This is a late entry for 12/28/2017 and covers the elements not covered in my initial note. SUBJECTIVE: I met with the patient in the evening in her room at length. The patient slept 7-3/4 hours. She has been somewhat anxious, attention seeking. As I met with her, she is somewhat paranoid, believes people are filming her and saving the film. We addressed this at length. She is obsessed regarding calling her sister during the day, but redirected later. REVIEW OF SYSTEM: No CV, , pulmonary, eye system symptoms on review. Gait unsteady with walker. MENTAL STATUS EXAM: Oriented to herself and situation. Speech coherent, pressured at times. Abstraction fair, computation impaired, language function intact, attention span short. Mood and affect remains anxious, somewhat labile. She talked at length about going on family vacations, going up to [email or web address], climbing mountains and camping, seemed to remember things reasonably well. LABORATORY DATA: Reviewed. IMPRESSION: Unchanged from initial note. PLAN: Increase Luvox to 75 mg a day once she has been on 50 mg for 3 days. Continue rest unchanged per initial note. MAN Victor Hugo SAPP MD DR: MAYLIN/robby JOB#: [id number] / [id number]
--- NOTE | 2017-12-29 20:53 | PDOC ---
Exam Note: Rte Note: Please also refer to the separate dictated note~for this date of service dictated separately.~Patient seen individually. Discussed the patient with Nursing staff reviewed the chart.~Reviewed interim history and current functioning. Reviewed vital signs,~Labs/ Radiology~and current medications noted below. Continue current treatment with the changes noted in the dictated addendum note Assessment: Vital Signs: Vital Signs Date Time Temp Pulse Resp B/P (MAP) Pulse Ox O2 Delivery O2 Flow Rate FiO2 12/29/17 16:03 98.0 86 16 124/67 (86) 99 12/28/17 16:14 Room Air I&O Intake and Output 12/29/17 06:59 Intake Total 1180 ml Balance 1180 ml Intake Oral 1180 ml Labs: Laboratory Tests Test 12/29/17 13:18 Urine Collection Type Unknown Urine Color Yellow Urine Clarity Clear Urine pH 6.5 Urine Specific [place] 1.010 Urine Protein Neg (NEG-TRACE) Urine Glucose (UA) Neg mg/dL (NEG) Urine Ketones (Stick) Neg mg/dL (NEG) Urine Blood Neg (NEG) Urine Nitrite Neg (NEG) Urine Bilirubin Neg (NEG) Urine Urobilinogen Dipstick 0.2 mg/dL (0.2 mg/dL) Urine Leukocyte Esterase Neg (NEG) Urine RBC 0 /HPF (0-2) Urine WBC 0 /HPF (0-4) Urine Squamous Epithelial Cells Occ /LPF Urine Bacteria 0 /HPF (0-FEW) Current Medications: Meds: Current Medications Lisinopril (Prinivil) 20 mg DAILY PO Last administered on 12/29/17 08:46; Start 12/18/17 at 09:00 Olanzapine (ZyPREXA ZYDIS) 2.5 mg PRN Q2HR PRN PO ANXIETY / AGITATION Last administered on 12/18/17 12:15; Start 12/18/17 at 06:00 Benztropine Mesylate (Cogentin) 0.5 mg BID PO Last administered on 12/29/17 08 :47; Start 12/18/17 at 09:00 Carbidopa/Levodopa (Sinemet 25/100) 2 tab [id number] PO Last administered on 12:27; Start 12/18/17 at 12:00 Lactobacillus Rhamnosus (Culturelle) 1 cap BID PO Last administered on at 08:46; Start 12/18/17 at 09:00 Quetiapine Fumarate (SEROquel) 25 mg BID PO Last administered on 12/20/17at 08:05 ; Start 12/18/17 at 21:00; Stop 12/20/17 at 18:27; Status DC Acetaminophen (Tylenol) 650 mg PRN Q6HRS PRN PO PAIN / TEMP Last administered on 12/27/17 06:01; Start 12/18/17 at 06:15 Multi-Ingredient Ointment (Analgesic [place]) 1 constantine PRN QID PRN TP MUSCLE PAIN; Start 12/18/17 at 06:15 Al Hydroxide/Mg Hydroxide (Mylanta Plus Xs) 15 ml PRN AFTMEALHC PRN PO DYSPEPSIA Last administered on 12/21/17 15:27; Start 12/18/17 at 06:15 Magnesium Hydroxide (Milk Of Magnesia) 2,400 mg PRN QHS PRN PO CONSTIPATION; Start 12/18/17 at 06:15 Sertraline HCl (Zoloft) 25 mg DAILY PO Last administered on 12/20/17at 08:05; Start 12/19/17 at 09:00; Stop 12/20/17 at 17:02; Status DC Trazodone HCl (Desyrel) 50 mg PRN QHS PRN PO insomnia Last administered on at 21:01; Start 12/18/17 at 18:30 Duloxetine HCl (Cymbalta) 30 mg DAILY PO Last administered on 12/23/17at 08:44; Start 12/21/17 at 09:00; Stop 12/23/17 at 12:17; Status DC Quetiapine Fumarate (SEROquel) 25 mg TID PO Last administered on 12/29/17 12: 27; Start 12/20/17 at 21:00; Stop 12/29/17 at 19:21; Status DC Loperamide HCl (Imodium) 4 mg PRN DAILY PRN PO diarrhea Last administered on 12/22/17at 10:14; Start 12/21/17 at 15:45 Loperamide HCl (Imodium) 2 mg PRN Q15MIN PRN PO DIARRHEA Last administered on at 16:47; Start 7/3/18 at 15:45 Fluvoxamine Maleate (Luvox) 25 mg HS PO Last administered on 12/25/17at 19:55; Start 12/23/17 at 21:00; Stop 12/26/17 at 09:00; Status DC Fluvoxamine Maleate (Luvox) 50 mg HS PO Last administered on 12/28/17at 20:04; Start 12/26/17 at 21:00; Stop 12/29/17 at 09:00; Status DC Vitamin D (Vitamin D3) 50,000 unit WEEKLY PO Last administered on 12/27/17at 14: 09; Start 12/27/17 at 13:45 Fluvoxamine Maleate (Luvox) 75 mg QHS PO ; Start 12/29/17 at 21:00 Quetiapine Fumarate (SEROquel) 25 mg DAILY@1300 PO ; Start 12/30/17 at 13:00 Quetiapine Fumarate (SEROquel) 37.5 mg BID@0900,1700 PO ; Start 12/30/17 at 09: 00 Active Scripts Active Reported Benztropine Mesylate 0.5 Mg Tablet 0.5 Mg PO BID Zyprexa Zydis (Olanzapine) 5 Mg Tab.rapdis 2.5 Mg PO PRN Q2HR PRN Seroquel Xr (Quetiapine Fumarate) 50 Mg Tab.er.24h 50 Mg PO HS Lisinopril 20 Mg Tablet 20 Mg PO DAILY Culturelle (Lactobacillus Rhamnosus Gg) 1 Each Capsule 1 Each PO BID Carbidopa-Levo 25-100 Mg Odt (Carbidopa/Levodopa) 1 Each Tab.rapdis 2 Each PO QID I have reviewed the current psychotropics carefully including drug interactions. Risk benefit ratio favors no change other than as noted in my dictated progress note. Diagnosis: Problems: (1) Anxiety disorder (2) Impulse control disorder (3) Major depressive disorder, recurrent episode (4) Psychosis, atypical (5) Mild cognitive impairment SUDHEER SAPP MD Dec 29, 2017 20:53
[2017-12-30] MEDS: CARBIDOPA/LEVODOPA 25/100MG TABLET PO SCH ×4 (06:00→16:19)
[2017-12-30 06:21] VITALS: BP 162/72
[2017-12-30] MEDS: LACTOBACILLUS RHAMNOSUS GG 1 CAPSULE. PO SCH ×2 (08:25→19:52)
[2017-12-30] MEDS: BENZTROPINE MESYLATE 0.5 MG TABLET PO SCH ×2 (08:25→19:53)
[2017-12-30] MEDS: LISINOPRIL 20 MG TABLET PO SCH (08:25)
[2017-12-30] MEDS: ACETAMINOPHEN 325 MG TABLET PO PRN (11:19)
[2017-12-30] MEDS: QUEtiapine 25 MG TABLET. PO SCH ×2 (12:22→16:19)
[2017-12-30] MEDS: busPIRone 5 MG TABLET. PO SCH (16:18)
[2017-12-30 16:29] VITALS: BP 151/59
--- NOTE | 2017-12-30 20:51 | PDOC ---
Exam Note: Tre Note: Please also refer to the separate dictated note~for this date of service dictated separately.~Patient seen individually. Discussed the patient with Nursing staff reviewed the chart.~Reviewed interim history and current functioning. Reviewed vital signs,~Labs/ Radiology~and current medications noted below. Continue current treatment with the changes noted in the dictated addendum note Assessment: Vital Signs: Vital Signs Date Time Temp Pulse Resp B/P (MAP) Pulse Ox O2 Delivery O2 Flow Rate FiO2 12/30/17 16:29 97.4 67 18 151/59 (89) 100 12/28/17 16:14 Room Air I&O Intake and Output 12/30/17 07:00 Intake Total 1200 ml Balance 1200 ml Intake Oral 1200 ml # Bowel Movements 1 Current Medications: Meds: Current Medications Lisinopril (Prinivil) 20 mg DAILY PO Last administered on 12/30/17at 08:25; Start 12/18/17 at 09:00 Olanzapine (ZyPREXA ZYDIS) 2.5 mg PRN Q2HR PRN PO ANXIETY / AGITATION Last administered on 12/18/17at 12:15; Start 12/18/17 at 06:00 Benztropine Mesylate (Cogentin) 0.5 mg BID PO Last administered on 12/30/17 19 :53; Start 12/18/17 at 09:00 Carbidopa/Levodopa (Sinemet 25/100) 2 tab [id number] PO Last administered on 06/07at 16:19; Start 12/18/17 at 12:00 Lactobacillus Rhamnosus (Culturelle) 1 cap BID PO Last administered on at 19:52; Start 12/18/17 at 09:00 Quetiapine Fumarate (SEROquel) 25 mg BID PO Last administered on 12/20/17at 08:05 ; Start 12/18/17 at 21:00; Stop 12/20/17 at 18:27; Status DC Acetaminophen (Tylenol) 650 mg PRN Q6HRS PRN PO PAIN / TEMP Last administered on 12/30/17at 11:19; Start 12/18/17 at 06:15 Multi-Ingredient Ointment (Analgesic [place]) 1 constantine PRN QID PRN TP MUSCLE PAIN; Start 12/18/17 at 06:15 Al Hydroxide/Mg Hydroxide (Mylanta Plus Xs) 15 ml PRN AFTMEALHC PRN PO DYSPEPSIA Last administered on 12/21/17at 15:27; Start 12/18/17 at 06:15 Magnesium Hydroxide (Milk Of Magnesia) 2,400 mg PRN QHS PRN PO CONSTIPATION; Start 12/18/17 at 06:15 Sertraline HCl (Zoloft) 25 mg DAILY PO Last administered on 12/20/17at 08:05; Start 12/19/17 at 09:00; Stop 12/20/17 at 17:02; Status DC Trazodone HCl (Desyrel) 50 mg PRN QHS PRN PO insomnia Last administered on 21:01; Start 12/18/17 at 18:30 Duloxetine HCl (Cymbalta) 30 mg DAILY PO Last administered on 12/23/17at 08:44; Start 12/21/17 at 09:00; Stop 12/23/17 at 12:17; Status DC Quetiapine Fumarate (SEROquel) 25 mg TID PO Last administered on 12/29/17at 12: 27; Start 12/20/17 at 21:00; Stop 12/29/17 at 19:21; Status DC Loperamide HCl (Imodium) 4 mg PRN DAILY PRN PO diarrhea Last administered on 12/22/17at 10:14; Start 12/21/17 at 15:45 Loperamide HCl (Imodium) 2 mg PRN Q15MIN PRN PO DIARRHEA Last administered on at 16:47; Start 12/21/17 at 15:45 Fluvoxamine Maleate (Luvox) 25 mg HS PO Last administered on 12/25/17at 19:55; Start 12/23/17 at 21:00; Stop 12/26/17 at 09:00; Status DC Fluvoxamine Maleate (Luvox) 50 mg HS PO Last administered on 12/28/17at 20:04; Start 12/26/17 at 21:00; Stop 12/29/17 at 09:00; Status DC Vitamin D (Vitamin D3) 50,000 unit WEEKLY PO Last administered on 12/27/17at 14: 09; Start 12/27/17 at 13:45 Fluvoxamine Maleate (Luvox) 75 mg QHS PO Last administered on 12/30/17at 19:52; Start 12/29/17 at 21:00 Quetiapine Fumarate (SEROquel) 25 mg DAILY@1300 PO Last administered on at 12:22; Start 12/30/17 at 13:00 Quetiapine Fumarate (SEROquel) 37.5 mg BID@0900,1700 PO Last administered on 06/07at 16:19; Start 12/30/17 at 09:00 Buspirone HCl (Buspar) 5 mg BID@0900,1500 PO Last administered on 12/30/17at 16: 18; Start 12/30/17 at 15:00 Active Scripts Active Reported Benztropine Mesylate 0.5 Mg Tablet 0.5 Mg PO BID Zyprexa Zydis (Olanzapine) 5 Mg Tab.rapdis 2.5 Mg PO PRN Q2HR PRN Seroquel Xr (Quetiapine Fumarate) 50 Mg Tab.er.24h 50 Mg PO HS Lisinopril 20 Mg Tablet 20 Mg PO DAILY Culturelle (Lactobacillus Rhamnosus Gg) 1 Each Capsule 1 Each PO BID Carbidopa-Levo 25-100 Mg Odt (Carbidopa/Levodopa) 1 Each Tab.rapdis 2 Each PO QID I have reviewed the current psychotropics carefully including drug interactions. Risk benefit ratio favors no change other than as noted in my dictated progress note. Diagnosis: Problems: (1) Anxiety disorder (2) Impulse control disorder (3) Major depressive disorder, recurrent episode (4) Psychosis, atypical (5) Mild cognitive impairment SUDHEER SAPP MD Dec 30, 2017 20:51
[2017-12-31] MEDS: CARBIDOPA/LEVODOPA 25/100MG TABLET PO SCH ×5 (00:47→19:20)
[2017-12-31 06:02] VITALS: BP 154/62
[2017-12-31] MEDS: BENZTROPINE MESYLATE 0.5 MG TABLET PO SCH ×2 (09:41→19:20)
[2017-12-31] MEDS: busPIRone 5 MG TABLET. PO SCH ×2 (09:41→15:20)
[2017-12-31] MEDS: LISINOPRIL 20 MG TABLET PO SCH (09:41)
[2017-12-31] MEDS: LACTOBACILLUS RHAMNOSUS GG 1 CAPSULE. PO SCH ×2 (09:41→19:20)
[2017-12-31] MEDS: QUEtiapine 25 MG TABLET. PO SCH ×3 (09:42→17:59)
[2017-12-31 16:41] VITALS: BP 130/65
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
--- NOTE | 2017-12-31 23:04 | PDOC ---
Exam Note: Tre Note: Please also refer to the separate dictated note~for this date of service dictated separately.~Patient seen individually. Discussed the patient with Nursing staff reviewed the chart.~Reviewed interim history and current functioning. Reviewed vital signs,~Labs/ Radiology~and current medications noted below. Continue current treatment with the changes noted in the dictated addendum note Assessment: Vital Signs: Vital Signs Date Time Temp Pulse Resp B/P (MAP) Pulse Ox O2 Delivery O2 Flow Rate FiO2 12/31/17 16:41 97.8 67 20 130/65 (86) 94 12/28/17 16:14 Room Air I&O Intake and Output 12/31/17 07:00 Intake Total 1200 ml Balance 1200 ml Intake Oral 1200 ml Current Medications: Meds: Current Medications Lisinopril (Prinivil) 20 mg DAILY PO Last administered on 12/31/17at 09:41; Start 12/18/17 at 09:00 Olanzapine (ZyPREXA ZYDIS) 2.5 mg PRN Q2HR PRN PO ANXIETY / AGITATION Last administered on 12/18/17 12:15; Start 12/18/17 at 06:00 Benztropine Mesylate (Cogentin) 0.5 mg BID PO Last administered on 12/31/17 19 :20; Start 12/18/17 at 09:00 Carbidopa/Levodopa (Sinemet 25/100) 2 tab [id number] PO Last administered on 19:20; Start 12/18/17 at 12:00 Lactobacillus Rhamnosus (Culturelle) 1 cap BID PO Last administered on 19:20; Start 12/18/17 at 09:00 Quetiapine Fumarate (SEROquel) 25 mg BID PO Last administered on 12/20/17at 08:05 ; Start 12/18/17 at 21:00; Stop 12/20/17 at 18:27; Status DC Acetaminophen (Tylenol) 650 mg PRN Q6HRS PRN PO PAIN / TEMP Last administered on 12/30/17at 11:19; Start 12/18/17 at 06:15 Multi-Ingredient Ointment (Analgesic [place]) 1 constantine PRN QID PRN TP MUSCLE PAIN; Start 12/18/17 at 06:15 Al Hydroxide/Mg Hydroxide (Mylanta Plus Xs) 15 ml PRN AFTMEALHC PRN PO DYSPEPSIA Last administered on 12/21/17at 15:27; Start 12/18/17 at 06:15 Magnesium Hydroxide (Milk Of Magnesia) 2,400 mg PRN QHS PRN PO CONSTIPATION; Start 12/18/17 at 06:15 Sertraline HCl (Zoloft) 25 mg DAILY PO Last administered on 12/20/17at 08:05; Start 12/19/17 at 09:00; Stop 12/20/17 at 17:02; Status DC Trazodone HCl (Desyrel) 50 mg PRN QHS PRN PO insomnia Last administered on at 21:01; Start 12/18/17 at 18:30 Duloxetine HCl (Cymbalta) 30 mg DAILY PO Last administered on 12/23/17at 08:44; Start 12/21/17 at 09:00; Stop 12/23/17 at 12:17; Status DC Quetiapine Fumarate (SEROquel) 25 mg TID PO Last administered on 12/29/17at 12: 27; Start 12/20/17 at 21:00; Stop 12/29/17 at 19:21; Status DC Loperamide HCl (Imodium) 4 mg PRN DAILY PRN PO diarrhea Last administered on 12/22/17at 10:14; Start 12/21/17 at 15:45 Loperamide HCl (Imodium) 2 mg PRN Q15MIN PRN PO DIARRHEA Last administered on at 16:47; Start 12/21/17 at 15:45 Fluvoxamine Maleate (Luvox) 25 mg HS PO Last administered on 12/25/17at 19:55; Start 12/23/17 at 21:00; Stop 12/26/17 at 09:00; Status DC Fluvoxamine Maleate (Luvox) 50 mg HS PO Last administered on 12/28/17at 20:04; Start 12/26/17 at 21:00; Stop 12/29/17 at 09:00; Status DC Vitamin D (Vitamin D3) 50,000 unit WEEKLY PO Last administered on 12/27/17at 14: 09; Start 12/27/17 at 13:45 Fluvoxamine Maleate (Luvox) 75 mg QHS PO Last administered on 12/31/17at 19:21; Start 12/29/17 at 21:00 Quetiapine Fumarate (SEROquel) 25 mg DAILY@1300 PO Last administered on at 12:46; Start 12/30/17 at 13:00 Quetiapine Fumarate (SEROquel) 37.5 mg BID@0900,1700 PO Last administered on at 17:59; Start 12/30/17 at 09:00 Buspirone HCl (Buspar) 5 mg BID@0900,1500 PO Last administered on 12/31/17at 15: 20; Start 12/30/17 at 15:00 Active Scripts Active Reported Benztropine Mesylate 0.5 Mg Tablet 0.5 Mg PO BID Zyprexa Zydis (Olanzapine) 5 Mg Tab.rapdis 2.5 Mg PO PRN Q2HR PRN Seroquel Xr (Quetiapine Fumarate) 50 Mg Tab.er.24h 50 Mg PO HS Lisinopril 20 Mg Tablet 20 Mg PO DAILY Culturelle (Lactobacillus Rhamnosus Gg) 1 Each Capsule 1 Each PO BID Carbidopa-Levo 25-100 Mg Odt (Carbidopa/Levodopa) 1 Each Tab.rapdis 2 Each PO QID I have reviewed the current psychotropics carefully including drug interactions. Risk benefit ratio favors no change other than as noted in my dictated progress note. Diagnosis: Problems: (1) Anxiety disorder (2) Impulse control disorder (3) Major depressive disorder, recurrent episode (4) Psychosis, atypical (5) Mild cognitive impairment SUDHEER SAPP MD Dec 31, 2017 23:04
[2018-01-01 05:46] VITALS: BP 159/76
[2018-01-01] MEDS: CARBIDOPA/LEVODOPA 25/100MG TABLET PO SCH ×3 (06:29→16:56)
[2018-01-01] MEDS: QUEtiapine 25 MG TABLET. PO SCH ×3 (07:48→16:55)
[2018-01-01] MEDS: LACTOBACILLUS RHAMNOSUS GG 1 CAPSULE. PO SCH ×3 (07:48→21:00)
[2018-01-01] MEDS: busPIRone 5 MG TABLET. PO SCH ×2 (07:48→15:00)
[2018-01-01] MEDS: LISINOPRIL 20 MG TABLET PO SCH (07:48)
[2018-01-01] MEDS: BENZTROPINE MESYLATE 0.5 MG TABLET PO SCH ×3 (07:49→21:00)
[2018-01-01] MEDS: ACETAMINOPHEN 325 MG TABLET PO PRN (12:58)
[2018-01-01 15:56] VITALS: BP 147/67
[2018-01-01] MEDS ORDERED: ACET325T9 PO (18:36)
[2018-01-01] MEDS ORDERED: CHOL500021 PO (18:37)
[2018-01-01] MEDS ORDERED: LOPE2TAB27 PO (18:38)
[2018-01-01] MEDS ORDERED: MAG355OR12 PO (18:39)
[2018-01-01] MEDS ORDERED: MAGN2400 PO (18:40)
[2018-01-01] MEDS ORDERED: MENT113G6 TP (18:41)
[2018-01-01] MEDS ORDERED: QUET25TA5 PO (18:42)
[2018-01-01] MEDS ORDERED: BUSP5TAB PO (18:43)
[2018-01-01] MEDS ORDERED: FLUV50TA2 PO (18:44)
[2018-01-01] MEDS ORDERED: TRAZ-85 PO (18:44)
--- NOTE | 2018-01-01 22:27 | PN ---
DATE: 12/31/2017 This is a late entry, 12/31/2017, covers the elements not covered in my initial note. SUBJECTIVE: I met with the patient in the evening. The patient slept 7-1/4 hours previous evening. She ate no breakfast, ate some lunch and dinner. REVIEW OF SYSTEMS: Ambulation impaired consequent to a Parkinson's. Ambulates with a walker. No CV, , pulmonary, eye system symptoms on review. MENTAL STATUS EXAM: Oriented to herself and situation. Speech is coherent, abstraction fair, computation impaired, language function intact, attention span short. Mood and affect remain somewhat anxious, but showing improvement. Reviewed her history. She was first diagnosed with Parkinson's in 1998. IMPRESSION: Unchanged from initial note. PLAN: Continue psychotropics as mentioned in my initial note. MAN Victor Hugo SAPP MD DR: MAYLIN/robby JOB#: [id number] / [id number]
--- NOTE | 2018-01-01 23:01 | PDOC ---
Exam Note: Tre Note: Please also refer to the separate dictated note~for this date of service dictated separately.~Patient seen individually. Discussed the patient with Nursing staff reviewed the chart.~Reviewed interim history and current functioning. Reviewed vital signs,~Labs/ Radiology~and current medications noted below. Continue current treatment with the changes noted in the dictated addendum note Assessment: Vital Signs: Vital Signs Date Time Temp Pulse Resp B/P (MAP) Pulse Ox O2 Delivery O2 Flow Rate FiO2 01/01/18 15:56 97.8 58 18 147/67 (93) 100 12/28/17 16:14 Room Air I&O Intake and Output 01/01/18 06:59 Intake Total 240 ml Balance 240 ml Intake Oral 240 ml Current Medications: Meds: Current Medications Lisinopril (Prinivil) 20 mg DAILY PO Last administered on 01/01/18 07:48; Start 12/18/17 at 09:00 Olanzapine (ZyPREXA ZYDIS) 2.5 mg PRN Q2HR PRN PO ANXIETY / AGITATION Last administered on 12/18/17 12:15; Start 12/18/17 at 06:00 Benztropine Mesylate (Cogentin) 0.5 mg BID PO Last administered on 01/01/18at 07 :49; Start 12/18/17 at 09:00 Carbidopa/Levodopa (Sinemet 25/100) 2 tab [id number] PO Last administered on 16:56; Start 12/18/17 at 12:00 Lactobacillus Rhamnosus (Culturelle) 1 cap BID PO Last administered on at 07:48; Start 12/18/17 at 09:00 Quetiapine Fumarate (SEROquel) 25 mg BID PO Last administered on 12/20/17at 08:05 ; Start 12/18/17 at 21:00; Stop 12/20/17 at 18:27; Status DC Acetaminophen (Tylenol) 650 mg PRN Q6HRS PRN PO PAIN / TEMP Last administered on 01/01/18at 12:58; Start 12/18/17 at 06:15 Multi-Ingredient Ointment (Analgesic [place]) 1 bassam PRN QID PRN TP MUSCLE PAIN; Start 12/18/17 at 06:15 Al Hydroxide/Mg Hydroxide (Mylanta Plus Xs) 15 ml PRN AFTMEALHC PRN PO DYSPEPSIA Last administered on 12/21/17at 15:27; Start 12/18/17 at 06:15 Magnesium Hydroxide (Milk Of Magnesia) 2,400 mg PRN QHS PRN PO CONSTIPATION; Start 12/18/17 at 06:15 Sertraline HCl (Zoloft) 25 mg DAILY PO Last administered on 12/20/17at 08:05; Start 12/19/17 at 09:00; Stop 12/20/17 at 17:02; Status DC Trazodone HCl (Desyrel) 50 mg PRN QHS PRN PO insomnia Last administered on at 21:01; Start 12/18/17 at 18:30 Duloxetine HCl (Cymbalta) 30 mg DAILY PO Last administered on 12/23/17at 08:44; Start 12/21/17 at 09:00; Stop 12/23/17 at 12:17; Status DC Quetiapine Fumarate (SEROquel) 25 mg TID PO Last administered on 12/29/17at 12: 27; Start 12/20/17 at 21:00; Stop 12/29/17 at 19:21; Status DC Loperamide HCl (Imodium) 4 mg PRN DAILY PRN PO diarrhea Last administered on 12/22/17at 10:14; Start 12/21/17 at 15:45 Loperamide HCl (Imodium) 2 mg PRN Q15MIN PRN PO DIARRHEA Last administered on at 16:47; Start 12/21/17 at 15:45 Fluvoxamine Maleate (Luvox) 25 mg HS PO Last administered on 12/25/17at 19:55; Start 12/23/17 at 21:00; Stop 12/26/17 at 09:00; Status DC Fluvoxamine Maleate (Luvox) 50 mg HS PO Last administered on 12/28/17at 20:04; Start 12/26/17 at 21:00; Stop 12/29/17 at 09:00; Status DC Vitamin D (Vitamin D3) 50,000 unit WEEKLY PO Last administered on 12/27/17at 14: 09; Start 12/27/17 at 13:45 Fluvoxamine Maleate (Luvox) 75 mg QHS PO Last administered on 12/31/17at 19:21; Start 12/29/17 at 21:00 Quetiapine Fumarate (SEROquel) 25 mg DAILY@1300 PO Last administered on at 12:58; Start 12/30/17 at 13:00 Quetiapine Fumarate (SEROquel) 37.5 mg BID@0900,1700 PO Last administered on at 16:55; Start 12/30/17 at 09:00 Buspirone HCl (Buspar) 5 mg BID@0900,1500 PO Last administered on 01/01/18at 15: 00; Start 12/30/17 at 15:00 Active Scripts Active Reported Trazodone Hcl 50 Mg Tablet 50 Mg PO PRN QHS PRN Fluvoxamine Maleate 50 Mg Tablet 75 Mg PO HS Buspirone Hcl 5 Mg Tablet 5 Mg PO BID @09 15 Seroquel (Quetiapine Fumarate) 25 Mg Tablet 25 Mg PO DAILY @1300 Bengay (Menthol) 113 Gm Gel..gram. 1 Bassam TP PRN QID PRN Milk Of Magnesia (Magnesium Hydroxide) 2,400 Mg/10 Ml Oral.susp 2,400 Mg PO PRN QHS PRN Maalox Maximum Strength Susp (Mag Hydrox/Al Hydrox/Simeth) 355 Ml Oral.susp 15 Ml PO PRN AFTMEALHC PRN Loperamide (Loperamide Hcl) 2 Mg Tablet 2 Mg PO PRN PRN D3-50 (Cholecalciferol (Vitamin D3)) 50,000 Unit Capsule 50,000 Unit PO WEEKLY D3-50 (Cholecalciferol (Vitamin D3)) 50,000 Unit Capsule 1 Cap PO WEEKLY Tylenol (Acetaminophen) 325 Mg Tablet 650 Mg PO PRN Q6HRS PRN Benztropine Mesylate 0.5 Mg Tablet 0.5 Mg PO BID Zyprexa Zydis (Olanzapine) 5 Mg Tab.rapdis 2.5 Mg PO PRN Q2HR PRN Seroquel Xr (Quetiapine Fumarate) 50 Mg Tab.er.24h 50 Mg PO HS Lisinopril 20 Mg Tablet 20 Mg PO DAILY Culturelle (Lactobacillus Rhamnosus Gg) 1 Each Capsule 1 Each PO BID Carbidopa-Levo 25-100 Mg Odt (Carbidopa/Levodopa) 1 Each Tab.rapdis 2 Each PO QID I have reviewed the current psychotropics carefully including drug interactions. Risk benefit ratio favors no change other than as noted in my dictated progress note. Diagnosis: Problems: (1) Anxiety disorder (2) Impulse control disorder (3) Major depressive disorder, recurrent episode (4) Psychosis, atypical (5) Mild cognitive impairment SUDHEER SAPP MD Jan 01, 2018 23:01
[2018-01-02] MEDS: CARBIDOPA/LEVODOPA 25/100MG TABLET PO SCH ×5 (05:44→17:56)
[2018-01-02 05:50] VITALS: BP 159/66
[2018-01-02] MEDS: busPIRone 5 MG TABLET. PO SCH ×2 (07:37→15:00)
[2018-01-02] MEDS: LACTOBACILLUS RHAMNOSUS GG 1 CAPSULE. PO SCH ×2 (07:38→20:42)
[2018-01-02] MEDS: BENZTROPINE MESYLATE 0.5 MG TABLET PO SCH ×2 (07:38→20:41)
[2018-01-02] MEDS: QUEtiapine 25 MG TABLET. PO SCH ×3 (07:38→17:57)
[2018-01-02] MEDS: LISINOPRIL 20 MG TABLET PO SCH (07:38)
[2018-01-02 07:43] LABS: BASO # 0.1 x10^3/uL (0.0-0.2); BASO % 1 % (0-3); EOS # 0.1 x10^3/uL (0.0-0.7); EOS % 2 % (0-3); HEMATOCRIT 40.1 % (36.0-47.0); HEMOGLOBIN 13.5 g/dL (12.0-15.5); LYMPH # 1.1 x10^3/uL (1.0-4.8); LYMPH % 19 % (24-48); MEAN CORPUSCULAR HEMOGLOBIN 31 pg (25-35); MEAN CORPUSCULAR HGB CONC 34 g/dL (31-37); MEAN CORPUSCULAR VOLUME 91 fL (79-100); MONO # 0.4 x10^3/uL (0.0-1.1); MONO % 7 % (0-9); NEUT # 4.3 x10^3uL (1.8-7.7); NEUT % 71 % (31-73); PLATELET COUNT 293 x10^3/uL (140-400); RED BLOOD COUNT 4.43 x10^6/uL (3.50-5.40); RED CELL DISTRIBUTION WIDTH 14.4 % (11.5-14.5); WHITE BLOOD COUNT 6.1 x10^3/uL (4.0-11.0)
[2018-01-02 08:20] LABS: ALBUMIN/GLOBULIN RATIO 1.1 (1.0-1.7); CALCIUM 9.3 mg/dL (8.5-10.1); CREATININE 0.7 mg/dL (0.6-1.0); GFR 82.5; TOTAL BILIRUBIN 0.5 mg/dL (0.2-1.0); TOTAL PROTEIN 7.6 g/dL (6.4-8.2)
[2018-01-02 09:07] LABS: BACTERIA,URINE 0 /HPF (0-FEW); BILIRUBIN,URINE NEG (NEG); CLARITY,URINE CLEAR; COLOR,URINE YELLOW; GLUCOSE,URINE NEG (NEG); NITRITE,URINE NEG (NEG); RBC,URINE 0 /HPF (0-2); SQUAMOUS EPITHELIAL CELL,UR OCC /LPF; UROBILINOGEN,URINE 0.2 mg/dL (0.2 mg/dL); WBC,URINE RARE /HPF (0-4)
[2018-01-02] MEDS: LOPERAMIDE 2 MG CAPSULE PO PRN ×4 (09:41→16:22)
[2018-01-02 15:59] VITALS: BP 125/67
--- NOTE | 2018-01-02 18:48 | PN ---
DATE: 01/01/2018 This is a late entry, 01/01/2018, covers the elements not covered in my initial note. SUBJECTIVE: I met with the patient in the evening. The patient slept 6-3/4 hours previous evening, wandering at times, compliant with medications. Previous evening complaining of being dizzy and was cursing at the nursing staff with increased mood lability. We will check a UA to rule out urinary tract infection. REVIEW OF SYSTEMS: Ambulation impaired with walker. No CV, , pulmonary, eye, ENT system symptoms on review. MENTAL STATUS EXAM: Oriented to herself and situation. Speech is coherent, less pressured. Abstraction fair, computation impaired, language function intact. Attention span short. Mood and affect remain somewhat anxious, labile. LABORATORY DATA: Reviewed. IMPRESSION: Unchanged from initial note. PLAN: Check urinalysis. Continue rest psychotropics unchanged. MAN Victor Hugo SAPP MD DR: MAYLIN/robby JOB#: [id number] / [id number]
--- NOTE | 2018-01-02 20:56 | PDOC ---
Exam Note: Tre Note: Please also refer to the separate dictated note~for this date of service dictated separately.~Patient seen individually. Discussed the patient with Nursing staff reviewed the chart.~Reviewed interim history and current functioning. Reviewed vital signs,~Labs/ Radiology~and current medications noted below. Continue current treatment with the changes noted in the dictated addendum note Assessment: Vital Signs: Vital Signs Date Time Temp Pulse Resp B/P (MAP) Pulse Ox O2 Delivery O2 Flow Rate FiO2 01/02/18 15:59 97.6 68 18 125/67 (86) 99 12/28/17 16:14 Room Air I&O Intake and Output 01/02/18 06:59 Intake Total 960 ml Balance 960 ml Intake Oral 960 ml # Voids 1 Labs: Laboratory Tests Test 01/02/18 07:18 01/02/18 07:46 White Blood Count 6.1 x10^3/uL (4.0-11.0) Red Blood Count 4.43 x10^6/uL (3.50-5.40) Hemoglobin 13.5 g/dL (12.0-15.5) Hematocrit 40.1 % (36.0-47.0) Mean Corpuscular Volume 91 fL (79-100) Mean Corpuscular Hemoglobin 31 pg (25-35) Mean Corpuscular Hemoglobin Concent 34 g/dL (31-37) Red Cell Distribution Width 14.4 % (11.5-14.5) Platelet Count 293 x10^3/uL (140-400) Neutrophils (%) (Auto) 71 % (31-73) Lymphocytes (%) (Auto) 19 % (24-48) L Monocytes (%) (Auto) 7 % (0-9) Eosinophils (%) (Auto) 2 % (0-3) Basophils (%) (Auto) 1 % (0-3) Neutrophils # (Auto) 4.3 x10^3uL (1.8-7.7) Lymphocytes # (Auto) 1.1 x10^3/uL (1.0-4.8) Monocytes # (Auto) 0.4 x10^3/uL (0.0-1.1) Eosinophils # (Auto) 0.1 x10^3/uL (0.0-0.7) Basophils # (Auto) 0.1 x10^3/uL (0.0-0.2) Sodium Level 140 mmol/L (136-145) Potassium Level 4.0 mmol/L (3.5-5.1) Chloride Level 106 mmol/L (98-107) Carbon Dioxide Level 29 mmol/L (21-32) Anion Gap 5 (6-14) L Blood Urea Nitrogen 11 mg/dL (7-20) Creatinine 0.7 mg/dL (0.6-1.0) Estimated GFR (Cockcroft-Gault) 82.5 BUN/Creatinine Ratio 16 (6-20) Glucose Level 89 mg/dL (70-99) Calcium Level 9.3 mg/dL (8.5-10.1) Total Bilirubin 0.5 mg/dL (0.2-1.0) Aspartate Amino Transferase (AST) 15 U/L (15-37) Alanine Aminotransferase (ALT) 11 U/L (14-59) L Alkaline Phosphatase 100 U/L (46-116) Total Protein 7.6 g/dL (6.4-8.2) Albumin 4.0 g/dL (3.4-5.0) Albumin/Globulin Ratio 1.1 (1.0-1.7) Urine Collection Type Unknown Urine Color Yellow Urine Clarity Clear Urine pH 5.5 Urine Specific [place] 1.015 Urine Protein Neg (NEG-TRACE) Urine Glucose (UA) Neg mg/dL (NEG) Urine Ketones (Stick) Neg mg/dL (NEG) Urine Blood Neg (NEG) Urine Nitrite Neg (NEG) Urine Bilirubin Neg (NEG) Urine Urobilinogen Dipstick 0.2 mg/dL (0.2 mg/dL) Urine Leukocyte Esterase Neg (NEG) Urine RBC 0 /HPF (0-2) Urine WBC Rare /HPF (0-4) Urine Squamous Epithelial Cells Occ /LPF Urine Bacteria 0 /HPF (0-FEW) Urine Mucus Slight /LPF Current Medications: Meds: Current Medications Lisinopril (Prinivil) 20 mg DAILY PO Last administered on 01/02/18at 07:38; Start 12/18/17 at 09:00 Olanzapine (ZyPREXA ZYDIS) 2.5 mg PRN Q2HR PRN PO ANXIETY / AGITATION Last administered on 12/18/17at 12:15; Start 12/18/17 at 06:00 Benztropine Mesylate (Cogentin) 0.5 mg BID PO Last administered on 01/02/18 20 :41; Start 12/18/17 at 09:00 Carbidopa/Levodopa (Sinemet 25/100) 2 tab [id number] PO Last administered on 17:56; Start 12/18/17 at 12:00 Lactobacillus Rhamnosus (Culturelle) 1 cap BID PO Last administered on 20:42; Start 12/18/17 at 09:00 Quetiapine Fumarate (SEROquel) 25 mg BID PO Last administered on 12/20/17 08:05 ; Start 12/18/17 at 21:00; Stop 12/20/17 at 18:27; Status DC Acetaminophen (Tylenol) 650 mg PRN Q6HRS PRN PO PAIN / TEMP Last administered on 01/01/18at 12:58; Start 12/18/17 at 06:15 Multi-Ingredient Ointment (Analgesic [place]) 1 bassam PRN QID PRN TP MUSCLE PAIN; Start 12/18/17 at 06:15 Al Hydroxide/Mg Hydroxide (Mylanta Plus Xs) 15 ml PRN AFTMEALHC PRN PO DYSPEPSIA Last administered on 12/21/17 15:27; Start 12/18/17 at 06:15 Magnesium Hydroxide (Milk Of Magnesia) 2,400 mg PRN QHS PRN PO CONSTIPATION; Start 12/18/17 at 06:15 Sertraline HCl (Zoloft) 25 mg DAILY PO Last administered on 12/20/17 08:05; Start 12/19/17 at 09:00; Stop 12/20/17 at 17:02; Status DC Trazodone HCl (Desyrel) 50 mg PRN QHS PRN PO insomnia Last administered on 21:01; Start 12/18/17 at 18:30 Duloxetine HCl (Cymbalta) 30 mg DAILY PO Last administered on 12/23/17 08:44; Start 12/21/17 at 09:00; Stop 12/23/17 at 12:17; Status DC Quetiapine Fumarate (SEROquel) 25 mg TID PO Last administered on 12/29/17at 12: 27; Start 12/20/17 at 21:00; Stop 12/29/17 at 19:21; Status DC Loperamide HCl (Imodium) 4 mg PRN DAILY PRN PO diarrhea Last administered on at 09:41; Start 12/21/17 at 15:45 Loperamide HCl (Imodium) 2 mg PRN Q15MIN PRN PO DIARRHEA Last administered on 16:22; Start 12/21/17 at 15:45 Fluvoxamine Maleate (Luvox) 25 mg HS PO Last administered on 12/25/17 19:55; Start 12/23/17 at 21:00; Stop 12/26/17 at 09:00; Status DC Fluvoxamine Maleate (Luvox) 50 mg HS PO Last administered on 12/28/17at 20:04; Start 12/26/17 at 21:00; Stop 12/29/17 at 09:00; Status DC Vitamin D (Vitamin D3) 50,000 unit WEEKLY PO Last administered on 12/27/17at 14: 09; Start 12/27/17 at 13:45 Fluvoxamine Maleate (Luvox) 75 mg QHS PO Last administered on 01/02/18at 20:41; Start 12/29/17 at 21:00 Quetiapine Fumarate (SEROquel) 25 mg DAILY@1300 PO Last administered on at 11:31; Start 12/30/17 at 13:00 Quetiapine Fumarate (SEROquel) 37.5 mg BID@0900,1700 PO Last administered on at 17:57; Start 12/30/17 at 09:00 Buspirone HCl (Buspar) 5 mg BID@0900,1500 PO Last administered on 01/02/18at 15: 00; Start 12/30/17 at 15:00 Active Scripts Active Reported Trazodone Hcl 50 Mg Tablet 50 Mg PO PRN QHS PRN Fluvoxamine Maleate 50 Mg Tablet 75 Mg PO HS Buspirone Hcl 5 Mg Tablet 5 Mg PO BID @09 15 Seroquel (Quetiapine Fumarate) 25 Mg Tablet 25 Mg PO DAILY @1300 [place] (Menthol) 113 Gm Gel..gram. 1 Bassam TP PRN QID PRN Milk Of Magnesia (Magnesium Hydroxide) 2,400 Mg/10 Ml Oral.susp 2,400 Mg PO PRN QHS PRN Maalox Maximum Strength Susp (Mag Hydrox/Al Hydrox/Simeth) 355 Ml Oral.susp 15 Ml PO PRN AFTMEALHC PRN Loperamide (Loperamide Hcl) 2 Mg Tablet 2 Mg PO PRN PRN D3-50 (Cholecalciferol (Vitamin D3)) 50,000 Unit Capsule 50,000 Unit PO WEEKLY D3-50 (Cholecalciferol (Vitamin D3)) 50,000 Unit Capsule 1 Cap PO WEEKLY Tylenol (Acetaminophen) 325 Mg Tablet 650 Mg PO PRN Q6HRS PRN Benztropine Mesylate 0.5 Mg Tablet 0.5 Mg PO BID Zyprexa Zydis (Olanzapine) 5 Mg Tab.rapdis 2.5 Mg PO PRN Q2HR PRN Seroquel Xr (Quetiapine Fumarate) 50 Mg Tab.er.24h 50 Mg PO HS Lisinopril 20 Mg Tablet 20 Mg PO DAILY Culturelle (Lactobacillus Rhamnosus Gg) 1 Each Capsule 1 Each PO BID Carbidopa-Levo 25-100 Mg Odt (Carbidopa/Levodopa) 1 Each Tab.rapdis 2 Each PO QID I have reviewed the current psychotropics carefully including drug interactions. Risk benefit ratio favors no change other than as noted in my dictated progress note. Diagnosis: Problems: (1) Anxiety disorder (2) Impulse control disorder (3) Major depressive disorder, recurrent episode (4) Psychosis, atypical (5) Mild cognitive impairment SUDHEER SAPP MD Jan 02, 2018 20:55
[2018-01-03 06:01] VITALS: BP 148/66
[2018-01-03] MEDS: CARBIDOPA/LEVODOPA 25/100MG TABLET PO SCH ×3 (06:10→12:29)
[2018-01-03] MEDS: LACTOBACILLUS RHAMNOSUS GG 1 CAPSULE. PO SCH (07:43)
[2018-01-03] MEDS: busPIRone 5 MG TABLET. PO SCH (07:43)
[2018-01-03] MEDS: BENZTROPINE MESYLATE 0.5 MG TABLET PO SCH (07:43)
[2018-01-03 07:44] VITALS: BP 148/66
[2018-01-03] MEDS: CHOLECALCIFEROL (VITAMIN D3) 50,000 UNIT CAPSULE PO SCH (07:44)
[2018-01-03] MEDS: LISINOPRIL 20 MG TABLET PO SCH (07:44)
[2018-01-03] MEDS: QUEtiapine 25 MG TABLET. PO SCH ×2 (07:50→12:29)
[2018-01-03] MEDS ORDERED: QUEtiapine 50 MG TABLET. PO SCH (08:00)
--- NOTE | 2018-01-03 18:41 | PDOC ---
Exam Note: Tre Note: Please also refer to the separate dictated note~for this date of service dictated separately.~Patient seen individually. Discussed the patient with Nursing staff reviewed the chart.~Reviewed interim history and current functioning. Reviewed vital signs,~Labs/ Radiology~and current medications noted below. Continue current treatment with the changes noted in the dictated addendum note Assessment: Vital Signs: Vital Signs Date Time Temp Pulse Resp B/P (MAP) Pulse Ox O2 Delivery O2 Flow Rate FiO2 01/03/18 07:44 65 148/66 01/03/18 06:01 97.4 20 98 Room Air I&O Intake and Output 01/03/18 07:00 Intake Total 1200 ml Balance 1200 ml Intake Oral 1200 ml # Voids 1 # Bowel Movements 2 Current Medications: Meds: Current Medications Lisinopril (Prinivil) 20 mg DAILY PO Last administered on 01/03/18at 07:44; Start 12/18/17 at 09:00; Stop 01/03/18 at 14:25; Status DC Olanzapine (ZyPREXA ZYDIS) 2.5 mg PRN Q2HR PRN PO ANXIETY / AGITATION Last administered on 12/18/17at 12:15; Start 12/18/17 at 06:00; Stop 01/03/18 at 14:25 ; Status DC Benztropine Mesylate (Cogentin) 0.5 mg BID PO Last administered on 01/03/18at 07 :43; Start 12/18/17 at 09:00; Stop 01/03/18 at 14:25; Status DC Carbidopa/Levodopa (Sinemet 25/100) 2 tab [id number] PO Last administered on at 12:29; Start 12/18/17 at 12:00; Stop 01/03/18 at 14:25; Status DC Lactobacillus Rhamnosus (Culturelle) 1 cap BID PO Last administered on at 07:43; Start 12/18/17 at 09:00; Stop 01/03/18 at 14:25; Status DC Quetiapine Fumarate (SEROquel) 25 mg BID PO Last administered on 12/20/17at 08:05 ; Start 12/18/17 at 21:00; Stop 12/20/17 at 18:27; Status DC Acetaminophen (Tylenol) 650 mg PRN Q6HRS PRN PO PAIN / TEMP Last administered on 01/01/18at 12:58; Start 12/18/17 at 06:15; Stop 01/03/18 at 14:25; Status DC Multi-Ingredient Ointment (Analgesic [place]) 1 bassam PRN QID PRN TP MUSCLE PAIN; Start 12/18/17 at 06:15; Stop 01/03/18 at 14:25; Status DC Al Hydroxide/Mg Hydroxide (Mylanta Plus Xs) 15 ml PRN AFTMEALHC PRN PO DYSPEPSIA Last administered on 12/21/17at 15:27; Start 12/18/17 at 06:15; Stop at 14:25; Status DC Magnesium Hydroxide (Milk Of Magnesia) 2,400 mg PRN QHS PRN PO CONSTIPATION; Start 12/18/17 at 06:15; Stop 01/03/18 at 14:25; Status DC Sertraline HCl (Zoloft) 25 mg DAILY PO Last administered on 12/20/17at 08:05; Start 12/19/17 at 09:00; Stop 12/20/17 at 17:02; Status DC Trazodone HCl (Desyrel) 50 mg PRN QHS PRN PO insomnia Last administered on at 21:01; Start 12/18/17 at 18:30; Stop 01/03/18 at 14:25; Status DC Duloxetine HCl (Cymbalta) 30 mg DAILY PO Last administered on 12/23/17at 08:44; Start 12/21/17 at 09:00; Stop 12/23/17 at 12:17; Status DC Quetiapine Fumarate (SEROquel) 25 mg TID PO Last administered on 12/29/17at 12: 27; Start 12/20/17 at 21:00; Stop 12/29/17 at 19:21; Status DC Loperamide HCl (Imodium) 4 mg PRN DAILY PRN PO diarrhea Last administered on at 09:41; Start 12/21/17 at 15:45; Stop 01/03/18 at 14:25; Status DC Loperamide HCl (Imodium) 2 mg PRN Q15MIN PRN PO DIARRHEA Last administered on at 16:22; Start 12/21/17 at 15:45; Stop 01/03/18 at 14:25; Status DC Fluvoxamine Maleate (Luvox) 25 mg HS PO Last administered on 12/25/17at 19:55; Start 12/23/17 at 21:00; Stop 12/26/17 at 09:00; Status DC Fluvoxamine Maleate (Luvox) 50 mg HS PO Last administered on 12/28/17at 20:04; Start 12/26/17 at 21:00; Stop 12/29/17 at 09:00; Status DC Vitamin D (Vitamin D3) 50,000 unit WEEKLY PO Last administered on 01/03/18at 07: 44; Start 12/27/17 at 13:45; Stop 01/03/18 at 14:25; Status DC Fluvoxamine Maleate (Luvox) 75 mg QHS PO Last administered on 01/02/18at 20:41; Start 12/29/17 at 21:00; Stop 01/03/18 at 14:25; Status DC Quetiapine Fumarate (SEROquel) 25 mg DAILY@1300 PO Last administered on at 12:29; Start 12/30/17 at 13:00; Stop 01/03/18 at 14:25; Status DC Quetiapine Fumarate (SEROquel) 37.5 mg BID@0900,1700 PO Last administered on at 17:57; Start 12/30/17 at 09:00; Stop 01/03/18 at 14:25; Status DC Buspirone HCl (Buspar) 5 mg BID@0900,1500 PO Last administered on 01/03/18at 07: 43; Start 12/30/17 at 15:00; Stop 01/03/18 at 14:25; Status DC Quetiapine Fumarate (SEROquel) 37.5 mg 1X PO Last administered on 01/03/18at 07: 49; Start 01/03/18 at 08:00; Stop 01/03/18 at 14:25; Status DC Active Scripts Active Reported Trazodone Hcl 50 Mg Tablet 50 Mg PO PRN QHS PRN Fluvoxamine Maleate 50 Mg Tablet 75 Mg PO HS Buspirone Hcl 5 Mg Tablet 5 Mg PO BID @09 15 Seroquel (Quetiapine Fumarate) 25 Mg Tablet 25 Mg PO DAILY @1300 [place] (Menthol) 113 Gm Gel..gram. 1 Bassam TP PRN QID PRN Milk Of Magnesia (Magnesium Hydroxide) 2,400 Mg/10 Ml Oral.susp 2,400 Mg PO PRN QHS PRN Maalox Maximum Strength Susp (Mag Hydrox/Al Hydrox/Simeth) 355 Ml Oral.susp 15 Ml PO PRN AFTMEALHC PRN Loperamide (Loperamide Hcl) 2 Mg Tablet 2 Mg PO PRN PRN D3-50 (Cholecalciferol (Vitamin D3)) 50,000 Unit Capsule 50,000 Unit PO WEEKLY give weekly on Saturdays Tylenol (Acetaminophen) 325 Mg Tablet 650 Mg PO PRN Q6HRS PRN Benztropine Mesylate 0.5 Mg Tablet 0.5 Mg PO BID Zyprexa Zydis (Olanzapine) 5 Mg Tab.rapdis 2.5 Mg PO PRN Q2HR PRN Seroquel Xr (Quetiapine Fumarate) 50 Mg Tab.er.24h 37.5 Mg PO BID @0900 1700 Lisinopril 20 Mg Tablet 20 Mg PO DAILY Carbidopa-Levo 25-100 Mg Odt (Carbidopa/Levodopa) 1 Each Tab.rapdis 2 Each PO QID @[id number] I have reviewed the current psychotropics carefully including drug interactions. Risk benefit ratio favors no change other than as noted in my dictated progress note. Diagnosis: Problems: (1) Major depressive disorder, recurrent episode (2) Impulse control disorder (3) Anxiety disorder (4) Psychosis, atypical SUDHEER SAPP MD Jan 03, 2018 18:41
--- NOTE | 2018-01-03 19:31 | PN ---
DATE: 01/02/2018 PSYCHIATRIC PROGRESS NOTE This is a late entry for 01/02/2018, covers elements not covered in my initial note. SUBJECTIVE: I met with the patient in the evening. The patient's UA is negative. She has had some diarrhea. We will defer to Dr. Hughes. REVIEW OF SYSTEMS: Ambulation impaired with walker. No CV, , pulmonary, eye system symptoms on review. MENTAL STATUS EXAM: Oriented to herself and situation. Speech is coherent, has some latency. Abstraction fair, computation impaired, language function intact, attention span short. Mood and affect remain somewhat withdrawn. She has not been climbing into others beds, not aggressive. LABORATORY DATA: Reviewed. IMPRESSION: Unchanged from initial note. PLAN: Continue current psychotropics. Adjust further as clinically indicated. MAN Victor Hugo SAPP MD DR: MAYLIN/robby JOB#: [id number] / [id number]
--- NOTE | 2018-01-04 12:57 | DS ---
DATE OF DISCHARGE: 01/03/2018 DISCHARGE SUMMARY/PSYCHIATRIC PROGRESS NOTE This late entry, date of service, 01/03/2018, covers elements not covered in my initial note. REASON FOR ADMISSION: Please refer to the admission history for details. Briefly, the patient is a 72-year-old female referred to us from [facility] by her primary care physician on account of worsening symptoms of depression and suicidal ideation after the patient reported a plan to overdose on her medications. Reportedly, another resident at the assisted said that the patient had climbed into her bed the previous evening and asked for a kiss. The patient appeared increasingly psychotic, depressed, had failed outpatient psychiatric interventions resulting in this referral. SIGNIFICANT FINDINGS AND CLINICAL COURSE: Following the admission, the patient was seen daily individually by myself from a psychiatric standpoint, medical followup per Dr. Hughes/Dr. Hernandez. She was fairly oriented, but quite psychotic, irritable, labile. She appeared somewhat more confused at night and did climb into another patient's bed even during this hospitalization. She was followed by Dr. Hunter from a neurological standpoint for her Parkinson's. Adjustments were made in her anti-parkinsonian medications to compensate for this. From a psychiatric standpoint, her psychotropics were adjusted and she seemed to do better on a combination of Seroquel 37.5 mg b.i.d. and 25 mg at 1300. She was also on Cogentin 0.5 mg b.i.d. and Sinemet 25/100 two tablets 4 times a day for her Parkinson's, Zyprexa p.r.n., trazodone 50 mg at bedtime p.r.n., may repeat x 1, BuSpar 5 mg twice a day, and Luvox 75 mg at bedtime. Gradually mood appeared to improve. No psychotic symptoms were noted. She was not climbing into other patients' beds and was quite improved. Prior to discharge, 01/03/2018, ambulation impaired with walker. No CV, , pulmonary, eye, ENT system symptoms on review. MENTAL STATUS EXAM: Oriented to herself and situation. Speech has some latency, coherent. Abstraction fair, computation impaired, language function intact, attention span short. Mood and affect was improved. FINAL DIAGNOSES: Major depressive disorder, recurrent, in partial remission; psychotic disorder, unspecified; obsessive-compulsive disorder, Parkinson's disease; impulse control disorder, unspecified. Rest unchanged from admission. DISCHARGE MEDICATIONS: Please refer to the MRAD. DISCHARGE INSTRUCTIONS: Outpatient psychiatric and medical followup at the assisted. Time for discharge day management greater than 30 minutes. MAN Victor Hugo SAPP MD DR: MAYLIN/robby JOB#: [id number] / [id number]
== END 2018-01-03 14:25 | DRG 885 ==
LOC: GEROPSY 04:47
PROVIDERS: ADMIT Psychiatry & Neurology Psychiatry; ATTEND Psychiatry & Neurology Psychiatry
DX: F33.3 Major depressive disorder, recurrent, severe with psychotic symptoms (principal); R45.851 Suicidal ideations; F02.81 Dementia in other diseases classified elsewhere, unspecified severity, with behavioral disturbance; G20 Parkinson's disease; E03.9 Hypothyroidism, unspecified; F41.8 Other specified anxiety disorders; F42.9 Obsessive-compulsive disorder, unspecified; F63.9 Impulse disorder, unspecified; F80.9 Developmental disorder of speech and language, unspecified; G89.29 Other chronic pain; I10 Essential (primary) hypertension; R56.9 Unspecified convulsions; Z79.899 Other long term (current) drug therapy; Z98.51 Tubal ligation status; Z91.83 Wandering in diseases classified elsewhere
CPT/HCPCS: 36415; 80053; 80061; 81001; 82306; 82607; 83036; 83540; 83550; 83735; 84436; 84439; 84443; 84480; 85025; 86592; 87086; 93005